=== PATIENT | male | born 1985 | race Caucasian/White ===

== ENCOUNTER 2021-05-14 15:27 | Emergency (ER) | payer SELFPAY ==
--- OUTSIDE RECORDS SUMMARY | 2021-05-14 15:35 | XMS REPORT | Continuity of Care Document ---
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 temperature 2021-03-11 22:50:53 36.78 Genesis [facility] [place] [facility] Respiratory rate 2021-03-11 22:50:53 18 /min [facility] Oxygen saturation in 2021-03-11 22:50:53 100 /min [facility] of Arterial blood by [facility] Pulse oximetry Branch Systolic blood 2021-02-11 11:34:18 114 mm[Hg] [facility] [place] [facility] Diastolic blood 2021-02-11 11:34:18 62 mm[Hg] [facility] Heart rate 2021-02-11 11:34:18 67 /min [facility] Body temperature 2021-02-11 11:34:18 37.11 Genesis [facility] [place] [facility] Respiratory rate 2021-02-11 11:34:18 16 /min [facility] [place] [facility] Oxygen saturation in 2021-02-11 11:34:18 97 /min [facility] of Arterial blood by [facility] Pulse oximetry Branch Body weight 2021-02-11 04:17:00 102.059 kg [facility] BMI 2021-02-11 04:17:00 31.38 kg/m2 [facility] Systolic blood 2020-09-04 21:12:00 110 mm[Hg] [facility] [place] [facility] Diastolic blood 2020-09-04 21:12:00 86 mm[Hg] [facility] [place] [facility] Heart rate 2020-09-04 21:12:00 82 /min [facility] Body temperature 2020-09-04 21:12:00 37.06 Genesis [facility] [place] [facility] Respiratory rate 2020-09-04 21:12:00 18 /min [facility] [place] [facility] Oxygen saturation in 2020-09-04 21:12:00 100 /min [facility] Arterial blood by [place] [place] Pulse oximetry Branch Body height 2020-09-04 02:38:00 180.3 cm [facility] [place] [facility] [place] Body weight 2020-09-04 02:38:00 102.059 kg [facility] [place] [facility] BMI 2020-09-04 02:38:00 31.38 kg/m2 [facility] Branch Systolic blood 2020-09-04 21:12:00 110 mm[Hg] [facility] [place] [facility] Diastolic blood 2020-09-04 21:12:00 86 mm[Hg] Unive rsity of pressure [facility] Heart rate 2020-09-04 21:12:00 82 /min [facility] [place] [facility] [place] Body temperature 2020-09-04 21:12:00 37.06 Genesis Univ ersity of [facility] Respiratory rate 2020-09-04 21:12:00 18 /min [facility] ersity of [facility] Oxygen saturation in 2020-09-04 21:12:00 100 /min [facility] Arterial blood by [facility] Pulse oximetry Branch Body height 2020-09-04 02:38:00 180.3 cm [facility] [place] [facility] [place] Body weight 2020-09-04 02:38:00 102.059 kg [facility] [place] [facility] [place] BMI 2020-09-04 02:38:00 31.38 kg/m2 Universi [facility] of [facility] Systolic blood 2021-02-12 21:00:00 127 mm[Hg] [facility] pressure Diastolic blood 2021-02-12 21:00:00 74 mm[Hg] [facility] pressure Heart rate 2021-02-12 21:00:00 93 /min [facility] Body temperature 2021-02-12 21:00:00 36.94 [facility] Respiratory rate 2021-02-12 21:00:00 18 /min [facility] Oxygen saturation in 2021-02-12 21:00:00 98 /min [facility] Arterial blood by Pulse oximetry Body height 2021-02-11 11:38:00 180.3 cm [facility] Body weight 2021-02-11 11:38:00 92.81 kg [facility] ealt BMI 2021-02-11 11:38:00 28.54 kg/m2 [facility] 02 Sat by Pulse 2020-09-26 09:01:22 100 /min Oximetry Body Mass Index 2020-09-26 09:01:22 30.0 Height 2020-09-26 09:01:22 180.34\\S\\71 Pulse Rate 2020-09-26 09:01:22 75 /min Respiratory Rate 2020-09-26 09:01:22 18 /min Temperature 2020-09-26 09:01:22 37\\S\\98.6 Weight 2020-09-26 09:01:22 62351.359\\S\\3440 Weight Measurement 2020-09-26 09:01:22 Estimated by Method Patient 02 Sat by Pulse 2020-09-22 08:55:59 100 /min Oximetry Body Mass Index 2020-09-22 08:55:59 30.0 Height 2020-09-22 08:55:59 180.34\\S\\71 Pulse Rate 2020-09-22 08:55:59 75 /min Respiratory Rate 2020-09-22 08:55:59 18 /min Temperature 2020-09-22 08:55:59 37\\S\\98.6 Weight 2020-09-22 08:55:59 37438.359\\S\\3440 Weight Measurement 2020-09-22 08:55:59 Estimated by Method Patient 02 Sat by Pulse 2020-09-20 17:45:44 100 /min Oximetry Body Mass Index 2020-09-20 17:45:44 30.7 Height 2020-09-20 17:45:44 180.34\\S\\71 Pulse Rate 2020-09-20 17:45:44 89 /min Respiratory Rate 2020-09-20 17:45:44 16 /min Temperature 2020-09-20 17:45:44 36.8\\S\\98.2 Weight 2020-09-20 17:45:44 35773.321\\S\\3520 Weight Measurement 2020-09-20 17:45:44 Estimated by Method Patient 02 Sat by Pulse 2020-09-20 17:28:42 100 /min Oximetry Body Mass Index 2020-09-20 17:28:42 30.7 Height 2020-09-20 17:28:42 180.34\\S\\71 Pulse Rate 2020-09-20 17:28:42 89 /min Respiratory Rate 2020-09-20 17:28:42 16 /min Temperature 2020-09-20 17:28:42 36.8\\S\\98.2 Weight 2020-09-20 17:28:42 08500.321\\S\\3520 Weight Measurement 2020-09-20 17:28:42 Estimated by Method Patient 02 Sat by Pulse 2020-09-20 17:18:24 100 /min Oximetry Body Mass Index 2020-09-20 17:18:24 30.7 Height 2020-09-20 17:18:24 180.34\\S\\71 Pulse Rate 2020-09-20 17:18:24 89 /min Respiratory Rate 2020-09-20 17:18:24 16 /min Temperature 2020-09-20 17:18:24 36.8\\S\\98.2 Weight 2020-09-20 17:18:24 70299.321\\S\\3520 Weight Measurement 2020-09-20 17:18:24 Estimated by Method Patient 02 Sat by Pulse 2020-09-20 16:07:13 100 /min Oximetry Body Mass Index 2020-09-20 16:07:13 30.7 Height 2020-09-20 16:07:13 180.34\\S\\71 Pulse Rate 2020-09-20 16:07:13 89 /min Respiratory Rate 2020-09-20 16:07:13 16 /min Temperature 2020-09-20 16:07:13 36.8\\S\\98.2 Weight 2020-09-20 16:07:13 55464.321\\S\\3520 Weight Measurement 2020-09-20 16:07:13 Estimated by Method Patient 02 Sat by Pulse 2020-09-20 16:06:42 100 /min Oximetry Body Mass Index 2020-09-20 16:06:42 30.7 Height 2020-09-20 16:06:42 180.34\\S\\71 Pulse Rate 2020-09-20 16:06:42 89 /min Respiratory Rate 2020-09-20 16:06:42 16 /min Temperature 2020-09-20 16:06:42 36.8\\S\\98.2 Weight 2020-09-20 16:06:42 58097.321\\S\\3520 Weight Measurement 2020-09-20 16:06:42 Estimated by Method Patient 02 Sat by Pulse 2020-09-20 15:36:51 100 /min Oximetry Body Mass Index 2020-09-20 15:36:51 30.7 Height 2020-09-20 15:36:51 180.34\\S\\71 Pulse Rate 2020-09-20 15:36:51 89 /min Respiratory Rate 2020-09-20 15:36:51 16 /min Temperature 2020-09-20 15:36:51 36.8\\S\\98.2 Weight 2020-09-20 15:36:51 23842.321\\S\\3520 Weight Measurement 2020-09-20 15:36:51 Estimated by Method Patient 02 Sat by Pulse 2020-09-20 15:34:48 100 /min Oximetry Body Mass Index 2020-09-20 15:34:48 30.0 Height 2020-09-20 15:34:48 180.34\\S\\71 Pulse Rate 2020-09-20 15:34:48 75 /min Respiratory Rate 2020-09-20 15:34:48 18 /min Temperature 2020-09-20 15:34:48 37\\S\\98.6 Weight 2020-09-20 15:34:48 67800.359\\S\\3440 Weight Measurement 2020-09-20 15:34:48 Estimated by Method Patient WEIGHT 2020-09-20 15:34:00 99.570157 kg HEIGHT 2020-09-20 15:34:00 180.34 cm 02 Sat by Pulse 2020-09-20 14:56:43 100 /min Oximetry Body Mass Index 2020-09-20 14:56:43 30.0 Height 2020-09-20 14:56:43 180.34\\S\\71 Pulse Rate 2020-09-20 14:56:43 75 /min Respiratory Rate 2020-09-20 14:56:43 18 /min Temperature 2020-09-20 14:56:43 37\\S\\98.6 Weight 2020-09-20 14:56:43 35896.359\\S\\3440 Weight Measurement 2020-09-20 14:56:43 Estimated by Method Patient 02 Sat by Pulse 2020-09-20 14:44:49 100 /min Oximetry Body Mass Index 2020-09-20 14:44:49 30.0 Height 2020-09-20 14:44:49 180.34\\S\\71 Pulse Rate 2020-09-20 14:44:49 89 /min Respiratory Rate 2020-09-20 14:44:49 16 /min Temperature 2020-09-20 14:44:49 36.8\\S\\98.2 Weight 2020-09-20 14:44:49 04464.359\\S\\3440 Weight Measurement 2020-09-20 14:44:49 Estimated by Method Patient 02 Sat by Pulse 2020-09-20 13:31:34 100 /min Oximetry Body Mass Index 2020-09-20 13:31:34 30.0 Height 2020-09-20 13:31:34 180.34\\S\\71 Pulse Rate 2020-09-20 13:31:34 89 /min Respiratory Rate 2020-09-20 13:31:34 16 /min Temperature 2020-09-20 13:31:34 36.8\\S\\98.2 Weight 2020-09-20 13:31:34 52514.359\\S\\3440 Weight Measurement 2020-09-20 13:31:34 Estimated by Method Patient 02 Sat by Pulse 2020-09-20 11:57:11 100 /min Oximetry Body Mass Index 2020-09-20 11:57:11 30.0 Height 2020-09-20 11:57:11 180.34\\S\\71 Pulse Rate 2020-09-20 11:57:11 89 /min Respiratory Rate 2020-09-20 11:57:11 16 /min Temperature 2020-09-20 11:57:11 36.8\\S\\98.2 Weight 2020-09-20 11:57:11 19435.359\\S\\3440 Weight Measurement 2020-09-20 11:57:11 Estimated by Method Patient 02 Sat by Pulse 2020-09-20 11:56:09 100 /min Oximetry Body Mass Index 2020-09-20 11:56:09 30.0 Height 2020-09-20 11:56:09 180.34\\S\\71 Pulse Rate 2020-09-20 11:56:09 89 /min Respiratory Rate 2020-09-20 11:56:09 16 /min Temperature 2020-09-20 11:56:09 36.8\\S\\98.2 Weight 2020-09-20 11:56:09 71887.359\\S\\3440 Weight Measurement 2020-09-20 11:56:09 Estimated by Method Patient WEIGHT 2020-09-20 11:53:00 97.426199 kg HEIGHT 2020-09-20 11:53:00 180.34 cm Procedures Procedure Date / Time Performing Clinician Source Performed URINALYSIS 2021-03-22 20:02:00 Gus Steward [facility] URINE DRUG (IMMUNOASSAY) 2021-03-22 20:02:00 Gus Steward [facility] SCREEN W/O REFLEX CREATINE KINASE 2021-03-22 18:27:00 Gus Steward [facility] COMP. METABOLIC PANEL 2021-03-22 18:27:00 Gus Steward [facility] ([id number]) [facility] SALICYLATE 2021-03-22 18:27:00 Gus Steward [facility] ETHANOL 2021-03-22 18:27:00 Gus Steward [facility] CBC WITH DIFF 2021-03-22 18:27:00 Gus Steward [facility] EXTRA TUBE ORANGE 2021-03-22 18:27:00 Gus Steward [facility] EKG-12 LEAD 2021-03-20 01:15:00 Mehrdad Pipestem James [facility] URINE DRUG (IMMUNOASSAY) 2021-03-20 00:25:00 Sonia Cronin [facility] SCREEN URINALYSIS 2021-03-20 00:25:00 Cronin [facility] EXTRA TUBE URINE CULTURE 2021-03-20 00:25:00 Nolberto Christianson [facility] XR CHEST 1 VW 2021-03-20 00:22:00 Mehrdad [facility] COVID-19 (MOLECULAR 2021-03-20 00:19:00 Mehrdad [facility] TESTING [facility] NUCLEIC ACID AMPLIFICATION) TROPONIN I 2021-03-20 00:18:00 Mehrdad [facility] HEPATIC FUNCTION PANEL 2021-03-20 00:18:00 Mehrdad Sonia [facility] ([id number]) (ALB,T.PRO,BILI Medical Branch T,BU/BC,ALT,AST,ALK PHOS) BASIC METABOLIC PANEL 2021-03-20 00:18:00 Mehrdad [facility] (NA, K, CL, CO2, Medical Branch GLUCOSE, BUN, CREATININE, CA) SALICYLATE 2021-03-20 00:18:00 Mehrdad [facility] ETHANOL 2021-03-20 00:18:00 Mehrdad [facility] CBC WITH DIFF 2021-03-20 00:18:00 Mehrdad [facility] COVID-19 (ID NOW RAPID 2021-03-20 00:18:00 Mehrdad Sonia [facility] TESTING) Medical Branch CREATINE KINASE 2021-03-10 13:11:00 Delia Noe [facility] CBC WITH DIFF 2021-03-10 02:51:[address] [facility] CREATINE KINASE 2021-03-10 02:48:00 Madison [facility] THYROID STIMULATING 2021-03-10 02:48:00 Roderick Wallace [facility] HORMONE [facility] COMP. METABOLIC PANEL 2021-03-10 02:48:00 Madison [facility] ([id number]) [facility] SALICYLATE 2021-03-10 02:48:00 Roderick [facility] ETHANOL 2021-03-10 02:48:[address] [facility] URINALYSIS 2021-03-10 02:48:00 [facility] COVID-19 (ID NOW RAPID 2021-03-10 02:48:00 Roderick Wallace [facility] TESTING) Medical Branch URINE DRUG (IMMUNOASSAY) 2021-03-10 02:48:00 Roderick Wallace [facility] - COMPREHENSIVE DRUG Medical Bra nch SCREEN W/O REFLEX CONSENT/REFUSAL FOR 2021-03-10 02:13:08 Doctor Unassigned, No Un [facility] DIAGNOSIS AND TREATMENT Name Medical Branch CONSULT CLINICAL CASE 2021-02-12 18:33:22 Keri Patton [facility] MANAGEMENT (RN/SW) CONSULT CLINICAL CASE 2021-02-12 15:38:52 Bryant Herrera [facility] MANAGEMENT (RN/SW) XRAY CHEST 2 VIEWS 2021-02-11 13:07:07 Peri Trejo [facility] BASIC METABOLIC PANEL 2021-02-11 11:14:00 Peri Trejo [facility] CBC/DIFF 2021-02-11 11:14:00 Peri Trejo [facility] TROPONIN I 2021-02-11 11:14:00 Peri Trejo [facility] URINE DRUG SCREEN 2021-02-11 11:14:00 Peri Trejo [facility] CBC 2021-02-11 11:14:00 Peri Trejo [facility] 12 LEAD EKG 2021-02-11 10:56:21 Peri Trejo [facility] COVID-19 (ID NOW RAPID 2020-09-04 07:46:00 Adiel Craig [facility] TESTING) Medical Branch COMP. METABOLIC PANEL 2020-09-04 04:56:00 Adiel Craig Un [facility] ([id number]) Medical Branch SALICYLATE 2020-09-04 04:56:00 Adiel Craig [facility] ETHANOL 2020-09-04 04:56:00 Adiel Craig [facility] CBC WITH DIFF 2020-09-04 04:56:00 Adiel Craig [facility] EXTRA TUBE URINE CULTURE 2020-09-04 04:56:00 Adiel Craig [facility] URINE DRUG (IMMUNOASSAY) 2020-09-04 04:44:00 Adiel Craig [facility] - COMPREHENSIVE DRUG Medical [facility] SCREEN CONSULT CLINICAL CASE 2020-04-04 10:51:10 Mine [facility] MANAGEMENT (RN/SW) TROPONIN I POC 2020-04-03 15:53:00 Unknown, Provider Maciej [facility] CBC/DIFF 2020-04-03 15:50:00 RodBarbara ng [facility] BASIC METABOLIC PANEL 2020-04-03 15:50:00 Barbara A[facility] CBC 2020-04-03 15:50:00 Barbara Ayoub [facility] SARS-COV-2, FLU A/B, RSV 2020-04-03 15:50:00 [facility] CORONAVIRUS, COVID-19, 2020-04-03 15:50:00 [facility] NEELIMA URINALYSIS 2020-04-03 15:49:00 Barbara Ayoub [facility] URINE DRUG SCREEN 2020-04-03 15:49:00 Barbara Ayoub [facility] URINALYSIS 2020-04-03 15:49:00 [facility] XRAY CHEST 2 VIEWS 2020-04-03 15:20:02 [facility] EKG PROC 12 LEAD 2020-04-03 14:14:41 Yaneli Hahn [facility] EKG; TRACING ONLY NON [facility] 2019-11-18 05:01:00 Doctor Unassigned, No Univ [facility] DOCUMENTATION Name Medical [facility] [place] Plan of Care Planned Activity Planned Date Details Comments Source Future Scheduled Test 2021-02-11 IMM Influenza Seasonal [facility] 00:00:00 Feb to July (>/= 19 yrs) [code = IMM Influenza Seasonal Feb to July (>/= 19 yrs)] Future Scheduled Test 1999 COVID-19 Vaccine (1) [facility] 00:00:00 [code = COVID-19 Vaccine (1)] Future Scheduled Test 1993 Imm Pneumococcal 0-64 [facility] 00:00:00 (1 of 2 - PPSV23) [code = Imm Pneumococcal 0-64 (1 of 2 - PPSV23)] Encounters Start End Encounter Admission Attending Care Care Encounter Source Date/Time Date/Time Type Type Clinicians Facility Department ID 2021-03-25 Outpatient [facility] [id number] [facility] 10:48:06 GINA 2021-03-15 Emergency [facility] [id number] Univers 02:54:48 ity [facility] 2021-03-13 Emergency [facility] [id number] Univers 15:01:13 ity [facility] 2021-02-24 Inpatient HCAMN MORIAH [facility] 00:13:00 [id number] [facility] 2020-08-29 Inpatient HCACL LESLIE [facility] 18:38:00 [id number] [facility] 2020-07-19 Inpatient HCAMN MEXP [facility] 01:36:00 [id number] [facility] 2019-11-10 Inpatient HCACL LESLIE [facility] 18:58:00 [id number] [facility] 2021-03-31 2021-04-18 Inpatient RIGO-ELDE [facility] [id number] Kennan 13:29:00 08:00:00 VAIBHAV Rahman 2021-03-25 2021-03-31 Inpatient [facility] [id number] Kennan 10:47:00 12:01:00 [facility] 2021-03-22 2021-03-25 [facility] [id number] Univers 10:54:00 08:56:00 JUDY ity of [facility] 2021-03-22 2021-03-25 Emergency BinGus coleman E TRAUMA 1.2.840 .[id number] Univers 10:54:00 08:56:00 Isabell Burrell [id number] ity Meron Tinoco 4.2.7.2. 686 Moisés Mathew [id number] [facility] Judy Harvey [address] [place] [address] 2021-03-19 2021-03-20 Emergency X SILVESTRE [facility] ERT [id number] Univers 18:57:00 14:29:00 PITA [facility] 2021-03-19 2021-03-20 Emergency Sonia Cronin [facility] [id number] Univers 18:57:00 14:29:00 Pita Rivers [facility] [id number] it[id number] [phone] [address] ([facility]) 2021-03-19 2021-03-19 [facility] [id number] Univers 18:30:00 19:17:47 KIERSTEN [facility] 2021-03-19 2021-03-19 Nurse Nurse, Jose A SLAUGHTER 1.2.840. [id number] Univers 18:18:02 18:33:02 Visit Unknown, Attending PEDIATRIC [id number]. 10 [id number] [id number] [place] [address] [facility] 2021-03-19 2021-03-19 Outpatient R [facility] [id number] Univers 18:30:00 18:30:00 [id number] ity of [facility] 2021-03-09 2021-03-11 Emergency X ADRIENNE [facility] ERT [id number] Univers 21:24:00 18:00:00 [facility] 2021-03-09 2021-03-11 Emergency Roderick Wallace [facility] [id number] Univers 21:24:00 18:00:00 James Verde [facility] [id number] ity of [place] [id number] [facility] [id number] Angelica Deleon [address] ([facility]) 2021-02-24 2021-02-24 Emergency CAMMY MartinezODELL MORIAH [id number] [facility] 00:13:00 01:32:[address] [place] [address] 2021-02-11 2021-02-12 Emergency [facility] [id number] Kennan 12:01:00 21:00:00 [facility] 2021-02-11 2021-02-11 Emergency ALEXANDER, [facility] [id number] Wing 12:55:01 12:55:01 PERI morris 2021-02-10 2021-02-11 Emergency Lenard [facility] [id number] [facility] 23:18:00 08:48:00 [facility] [id number] it y [id number] [facility] [id number] [address] ([facility]) 2020-11-08 2020-11-08 Emergency JORGE TorresMN MORIAH [id number] [facility] 08:32:00 11:03:00 Jose [id number] [facility] 2020-09-03 2020-09-04 [facility] 1.2. [id number] [facility] 22:18:00 16:26:00 [facility] [id number] [id number] [id number] [address] ([facility]) 2020-09-03 2020-09-04 Emergency [facility] 1.2. 840.114 [id number] 22:18:00 16:26:00 Jimenez, [facility] [id number] [place] [id number] [place] [phone] [place] [address] ([facility]) 2020-05-04 2020-05-04 Telephonic Carlos Bey [facility] [id number] Maciej 07:32:32 11:21:34 Encounter MeirPaulino Lisset [facility] 2020-04-16 2020-04-16 Telephonic Meir [facility] [id number] Maciej 07:15:06 12:12:14 Encounter [facility]ino [facility] 2020-04-03 2020-04-04 Emergency Lupillo [facility] [id number] Maciej 14:15:43 12:06:00 [facility] 2019-12-05 2019-12-23 Inpatient 1 Fernando Gunter [facility] PSY [id number] St. 12:29:00 13:53:00 Fernando Gunter andie [facility] 2019-11-18 2019-11-18 Hospital [facility], ST. 1.2.840.114 [id number] [facility] 13:58:34 23:59:00 Encounter Pita Flores TERESACharlotteAndie [id number] ity of [facility] [id number] [facility] [place] [id number] [facility] 060 [place] 2019-11-18 2019-11-18 [facility] Stone, ST. 1.2.840.114 [id number] 13:58:34 23:59:00 Encounter Pita Sandra TERESACharlotteAndie [id number] MEDICAL [id number] [place] [id number] [facility] 2019-11-18 2019-11-18 Out[facility] [id number] Univers 00:00:00 00:00:00 PITA gamez [facility] 2019-11-18 2019-11-18 Orders Doctor LÓPEZ [id number] [facility] 00:00:00 00:00:00 Only Unassigned, SHARA [id number] ity of [place] [facility] [id number] [facility] [id number] [facility] 009 [place] 2019-11-18 2019-11-18 Orders Doctor RENE Shen.[id number] 00:00:00 00:00:00 Only Unassigned, SHARA [id number] [place] [facility] [id number] [id number] Results Test Description Test Time Test Comments Results Result Comments Source Ethanol (ETOH) Level 2021-03-22 19:18:32 Test Item Value Reference Range Interpretation Comme nts ALCOHOL (test code = 4435460444) <10 mg/dL STEVE (test code = STEVE) Toxic Greater than or equal to 80 mg/dL. NOTE: Whole blood values are approximately 10% to 15% lower than serum and plasma. [facility] 19:18:27 Test Item Value Reference Range Interpretation Comments SALICYLATE (test code <10 mg/L = 2355184946) STEVE (test code = STEVE) Therapeutic Range: ? Analgesic and Antipyretic Use ? 20-100 mg/L ? ? Anti-Inflammatory Use ? 100-250 mg/L Toxic Range: ? Greater than 300 mg/L [facility]2021-11-09 19:18:12 Test Item Value Reference Range Interpretation Comments ACETAMINOP (test code = <10.0 10.0-30.0 L [id number]) STEVE (test code = STEVE) Toxic: Greater than 200 ug/mL @ 4 hour post ingestion or greater than 50 ug/mL @ 12 hour post ingestion Lab Interpretation (test Abnormal code = 34531-9) [facility] ([id number]) 2021-03-22 19:15:27 Test Item Value Reference Range Interpretation Comments NA (test code = 138 mmol/L 135-145 8273304535) K (test code = 5.1 mmol/L 3.5-5.0 H Slight 8483412137) hemolysis CL (test code = 108 mmol/L 98-108 1524929984) CO2 TOTAL (test code 22 mmol/L 23-31 L = 1390037000) AGAP (test code = 2-16 8707964243) BUN (test code = 8 mg/dL 7-23 Slight 3828204077) hemolysis GLUCOSE (test code = 86 mg/dL 70-110 0376235541) CREATININE (test code 0.54 mg/dL 0.60-1.25 L = 2572493462) TOTAL BILI (test code 0.7 mg/dL 0.1-1.1 = 3277729101) CALCIUM (test code = 8.9 mg/dL 8.6-10.6 1232642225) T PROTEIN (test code 6.9 g/dL 6.3-8.2 = 4985869996) ALBUMIN (test code = 3.8 g/dL 3.5-5.0 4453536130) ALK PHOS (test code = 70 U/L 34-122 Slight 1020803841) hemolysis ALTv (test code = 16 U/L 5-50 1742-6) AST(SGOT) (test code 28 U/L 13-40 Slight = 9150491582) hemolysis eGFR (test code = mL/min/1.73m2 9565843436) STEVE (test code = STEVE) Association of Glomerular Filtration Rate (GFR) and Staging of Kidney Disease* + -----+ --------+ +| GFR (mL/min/1.73 m2) ?| With Kidney Damage ?| ?Without Kidney Damage+ +------- +---- --+| ?>90 ?| ?Stage one ?| ? Normal ?+ ------+ ---------+--------- +| ?60-89 ?| ?Stage two ?| ? Decreased GFR ? + -----+ --------+ +| ?30-59 ?| ?Stage three ?| ? Stage three ? + -----+ --------+ +| ?15-29 ?| ?Stage four ? | ? Stage four ?+ ------+ ---------+--------- +| ?<15 (or dialysis) ? ?| ?Stage five ? | ? Stage five ?+ ------+ ---------+--------- + *Each stage assumes the associated GFR level has been in effect for at least three months. ?Stages 1 to 5, with or without kidney disease, indicate chronic kidney disease. Notes: Determination of stages one and two (with eGFR >59mL/min/1.73 m2) requires estimation of kidney damage for at least three months as defined by structural or functional abnormalities of the kidney, manifested by either:Pathological abnormalities or Markers of kidney damage (including abnormalities in the composition of the blood or urine or abnormalities in imaging tests). Lab Interpretation Abnormal (test code = 36458-9) [facility] [id number] 19:15:27 Test Item Value Reference Range Interpretation Comments CK (test code = 6246973376) 72 U/L 33-194 Lab Interpretation (test code = Normal 70231-4) [facility] with [id number] 18:40:24 Test Item Value Reference Range Interpretation Comments WBC (test code = See_Comment [Automated 6247-2) message] The sy stem which generated this result transmitted reference range : 4.20 - 10.70 10*3/?L. The reference range was not used to interpret this result as normal/abnormal . RBC (test code = See_Comment [Automated 789-8) message] The sy stem which generated this result transmitted reference range : 4.26 - 5.52 10*6/?L. The reference range was not used to interpret this result as normal/abnormal . HGB (test code = 13.0 g/dL 12.2-16.4 718-7) HCT (test code = 38.3 % 38.4-49.3 L 4544-3) MCV (test code = 86.7 fL 81.7-95.6 787-2) MCH (test code = 29.4 pg 26.1-32.7 785-6) MCHC (test code = 33.9 g/dL 31.2-35.0 786-4) RDW-SD (test code = 40.2 fL 38.5-51.6 20139-1) RDW-CV (test code = 12.7 % 12.1-15.4 788-0) PLT (test code = See_Comment [Automated 777-3) message] The sy stem which generated this result transmitted reference range : 150 - 328 10*3/ ?L. The reference r chaka was not used to interpret this result as normal/abnormal . MPV (test code = 9.1 fL 9.8-13.0 L 82136-6) NRBC/100 WBC (test See_Comment [Automat ed code = 8844814917) message] The system which generated this result transmitted reference range : 0.0 - 10.0 /100 WBCs. The refer ence range was not u sed to interpret th is result as normal/abnormal . NRBC x10^3 (test code <0.01 See_Comment [Auto mated = 7423745138) message] The s ystem which generated this result transmitted reference range : 10*3/?L. The reference range was not used to interpret this result as normal/abnormal . GRAN MAT (NEUT) % 52.4 % (test code = 770-8) IMM GRAN % (test code 0.20 % = 0669244142) LYMPH % (test code = 38.2 % 736-9) MONO % (test code = 6.3 % 5905-5) EOS % (test code = 2.2 % 713-8) BASO % (test code = 0.7 % 706-2) GRAN MAT x10^3(ANC) 4.62 10*3/uL 1.99-6.95 (test code = 1202101540) IMM GRAN x10^3 (test <0.03 0.00-0.06 code = 6854110907) LYMPH x10^3 (test code 3.37 10*3/uL 1.09-3.23 H = 731-0) MONO x10^3 (test code 0.56 10*3/uL 0.36-1.02 = 742-7) EOS x10^3 (test code = 0.19 10*3/uL 0.06-0.53 711-2) BASO x10^3 (test code 0.06 10*3/uL 0.01-0.09 = 704-7) Lab Interpretation Abnormal (test code = 95598-0) [facility] ClinicTROP[facility]IN [id number] 00:56:28 Test Item Value Reference Interpretation Comments Range TROPONIN I (test 0.001 ng/mL See_Comment [Automated code = 5226953628) message] The system which generated this result transmitted reference range : <=0.034. The reference range was not used to interpret this result as normal/abnormal . STEVE (test code = Reference (Normal) STEVE) Range (defined by the 99th percentile reference limit): <= 0.034 ng/mL Note: Cardiac troponin begins to rise 3-4 hours after the onset of ischemia. Repeat in 4-6 hours if the sample was drawn within 3-4 hours of the onset of the symptom and found normal. Diagnosis of myocardial injury is made with acute changes in cTn concentrations with at least one serial sample above the 99th percentile upper reference limit (URL), taken together with the patient's clinical presentation. Biotin has been reported to cause a negative bias, interpret results relative to patient's use of biotin. Lab Interpretation Normal (test code = 65312-2) [facility] WITH [id number] 00:50:32 Test Item Value Reference Range Interpretation Comments WBC (test code = See_Comment H [Automated 6690-2) message] The sy stem which generated this result transmitted reference range : 4.20 - 10.70 10*3/?L. The reference range was not used to interpret this result as normal/abnormal . RBC (test code = See_Comment [Automated 789-8) message] The sy stem which generated this result transmitted reference range : 4.26 - 5.52 10*6/?L. The reference range was not used to interpret this result as normal/abnormal . HGB (test code = 13.4 g/dL 12.2-16.4 718-7) HCT (test code = 38.3 % 38.4-49.3 L 4544-3) MCV (test code = 85.1 fL 81.7-95.6 787-2) MCH (test code = 29.8 pg 26.1-32.7 785-6) MCHC (test code = 35.0 g/dL 31.2-35.0 786-4) RDW-SD (test code = 38.1 fL 38.5-51.6 L 49721-1) RDW-CV (test code = 12.4 % 12.1-15.4 788-0) PLT (test code = See_Comment [Automated 777-3) message] The sy stem which generated this result transmitted reference range : 150 - 328 10*3/ ?L. The reference r chaka was not used to interpret this result as normal/abnormal . MPV (test code = 8.7 fL 9.8-13.0 L 41440-4) NRBC/100 WBC (test See_Comment [Automat ed code = 3132765173) message] The system which generated this result transmitted reference range : 0.0 - 10.0 /100 WBCs. The refer ence range was not u sed to interpret th is result as normal/abnormal . NRBC x10^3 (test code <0.01 See_Comment [Auto mated = 0860218259) message] The s ystem which generated this result transmitted reference range : 10*3/?L. The reference range was not used to interpret this result as normal/abnormal . GRAN MAT (NEUT) % 55.4 % (test code = 770-8) IMM GRAN % (test code 0.30 % = 5170343095) LYMPH % (test code = 34.2 % 736-9) MONO % (test code = 8.7 % 5905-5) EOS % (test code = 0.9 % 713-8) BASO % (test code = 0.5 % 706-2) GRAN MAT x10^3(ANC) 6.49 10*3/uL 1.99-6.95 (test code = 1526764758) IMM GRAN x10^3 (test 0.03 10*3/uL 0.00-0.06 code = 3374075452) LYMPH x10^3 (test code 4.01 10*3/uL 1.09-3.23 H = 731-0) MONO x10^3 (test code 1.02 10*3/uL 0.36-1.02 = 742-7) EOS x10^3 (test code = 0.10 10*3/uL 0.06-0.53 711-2) BASO x10^3 (test code 0.06 10*3/uL 0.01-0.09 = 704-7) Lab Interpretation Abnormal (test code = 31997-1) [facility] ClinicETHANOL2021-[facility] 00:45:31 Test Item Value Reference Range Interpretation Comments ALCOHOL (test code = <10 mg/dL 1291075868) STEVE (test code = Toxic Greater than or STEVE) equal to 80 mg/dL. NOTE: Whole blood values are approximately 10% to 15% lower than serum and plasma. [facility] ClinicSALICYLATE2021-11-07 00:45:26 Test Item Value Reference Range Interpretation Comments SALICYLATE (test code <10 mg/L = 2598258805) STEVE (test code = STEVE) Therapeutic Range: ? Analgesic and Antipyretic Use ? 20-100 mg/L ? ? Anti-Inflammatory Use ? 100-250 mg/L Toxic Range: ? Greater than 300 mg/L [facility] ClinicACETAMINOPHEN2021-11-07 00:45:16 Test Item Value Reference Range Interpretation Comments ACETAMINOP (test code = <10.0 10.0-30.0 L 0443504047) STEVE (test code = STEVE) Toxic: Greater than 200 ug/mL @ 4 hour post ingestion or greater than 50 ug/mL @ 12 hour post ingestion Lab Interpretation (test Abnormal code = 68938-4) [facility] METABOLIC PANEL (NA, K, CL, CO2, GLUCOSE, BUN, CREATININE, CA)2021-03-20 00:44:11 Test Item Value Reference Range Interpretation Comments NA (test code = 134 mmol/L 135-145 L 3157678339) K (test code = 3.7 mmol/L 3.5-5.0 9229629280) CL (test code = 98 mmol/L 98-108 9990837442) CO2 TOTAL (test code = 29 mmol/L 23-31 9337343001) AGAP (test code = 2-16 4397106374) BUN (test code = 13 mg/dL 7-23 1603964210) GLUCOSE (test code = 113 mg/dL 70-110 H 4594833528) CREATININE (test code = 0.71 mg/dL 0.60-1.25 7369180195) CALCIUM (test code = 9.9 mg/dL 8.6-10.6 0181418423) eGFR (test code = mL/min/1.73m2 1163435960) STEVE (test code = STEVE) Association of Glomerular Filtration Rate (GFR) and Staging of Kidney Disease* + --+ --+ ------+| GFR (mL/min/1.73 m2) ?| With Kidney Damage ?| ?Without Kidney Damage+ --------+ --------+ +| ?>90 ?| ?Stage one ?| ? Normal ?+ ---+ ---+ -------+| ?60-89 ?| ?Stage two ?| ? Decreased GFR ? + --+ --+ ------+| ?30-59 ?| ?Stage three ?| ? Stage three ? + --+ --+ ------+| ?15-29 ?| ?Stage four ? | ? Stage four ?+ ---+ ---+ -------+| ?<15 (or dialysis) ? ?| ?Stage five ? | ? Stage five ?+ ---+ ---+ -------+ *Each stage assumes the associated GFR level has been in effect for at least three months. ?Stages 1 to 5, with or without kidney disease, indicate chronic kidney disease. Notes: Determination of stages one and two (with eGFR >59mL/min/1.73 m2) requires estimation of kidney damage for at least three months as defined by structural or functional abnormalities of the kidney, manifested by either:Pathological abnormalities or Markers of kidney damage (including abnormalities in the composition of the blood or urine or abnormalities in imaging tests). Lab Interpretation Abnormal (test code = 34126-9) [facility] ClinicHEPATIC FUNCTION PANEL (23043) (ALB,T.PRO,BILI T,BU/BC,ALT,AST,ALK PHOS)2021-03-20 00:44:11 Test Item Value Reference Range Interpretation Comments TOTAL BILI (test code = 7005548132) 0.6 mg/dL 0.1-1.1 BILI UNCON (test code = 4038941675) 0.3 mg/dL 0.1-1.1 BILI CONJ (test code = 8124227581) 0.0 mg/dL 0.0-0.3 T PROTEIN (test code = 1862683721) 7.4 g/dL 6.3-8.2 ALBUMIN (test code = 6035567349) 4.2 g/dL 3.5-5.0 ALK PHOS (test code = 3309164955) 84 U/L 34-122 ALTv (test code = 1742-6) 19 U/L 5-50 AST(SGOT) (test code = 5751814944) 30 U/L 13-40 Lab Interpretation (test code = Normal 61818-4) [facility] ClinicCREATINE [id number] 13:31:13 Test Item Value Reference Range Interpretation Comments CK (test code = 8101844973) 291 U/L 33-194 H Lab Interpretation (test code = Abnormal 08271-2) [facility] ClinicThyroid Stimulating [id number] 03:40:00 Test Item Value Reference Range Interpretation Comments TSH (test code = See_Comment L [Automated message] 3196905725) The system theeventwall generated this result transmitted ref erence range: 0.45 - 4 .70 mIU/L. The refe rence range was not u sed to interpret this result as normal/abnor mal. Lab Interpretation (test Abnormal code = 99460-5) [facility] ClinicEthanol (ETOH) [id number] 03:12:40 Test Item Value Reference Range Interpretation Comments ALCOHOL (test code = <10 mg/dL 2031856174) STEVE (test code = Toxic Greater than or STEVE) equal to 80 mg/dL. NOTE: Whole blood values are approximately 10% to 15% lower than serum and plasma. [facility] ClinicSalicylate2021-10-28 03:12:35 Test Item Value Reference Range Interpretation Comments SALICYLATE (test code <10 mg/L = 1600849667) STEVE (test code = STEVE) Therapeutic Range: ? Analgesic and Antipyretic Use ? 20-100 mg/L ? ? Anti-Inflammatory Use ? 100-250 mg/L Toxic Range: ? Greater than 300 mg/L [facility] ClinicAcetaminophen2021-10-28 03:12:30 Test Item Value Reference Range Interpretation Comments ACETAMINOP (test code = <10.0 10.0-30.0 L 8378671767) STEVE (test code = STEVE) Toxic: Greater than 200 ug/mL @ 4 hour post ingestion or greater than 50 ug/mL @ 12 hour post ingestion Lab Interpretation (test Abnormal code = 55438-2) [facility] ClinicComprehensive Metabolic Panel (92066) 2021-03-10 03:09:55 Test Item Value Reference Range Interpretation Comments NA (test code = 137 mmol/L 135-145 3610794637) K (test code = 3.4 mmol/L 3.5-5.0 L 7336148706) CL (test code = 101 mmol/L 98-108 9479292159) CO2 TOTAL (test code = 27 mmol/L 23-31 4591188767) AGAP (test code = 2-16 9993678164) BUN (test code = 10 mg/dL 7-23 5559588671) GLUCOSE (test code = 78 mg/dL 70-110 9606998347) CREATININE (test code = 0.66 mg/dL 0.60-1.25 1241088002) TOTAL BILI (test code = 0.7 mg/dL 0.1-1.1 9544180828) CALCIUM (test code = 9.0 mg/dL 8.6-10.6 0560451153) T PROTEIN (test code = 7.2 g/dL 6.3-8.2 6113732063) ALBUMIN (test code = 4.0 g/dL 3.5-5.0 7072148969) ALK PHOS (test code = 71 U/L 34-122 7183186591) ALTv (test code = 18 U/L 5-50 2-6) AST(SGOT) (test code = 32 U/L 13-40 6588241997) eGFR (test code = mL/min/1.73m2 6688459776) STEVE (test code = STEVE) Association of Glomerular Filtration Rate (GFR) and Staging of Kidney Disease* + --+ --+ ------+| GFR (mL/min/1.73 m2) ?| With Kidney Damage ?| ?Without Kidney Damage+ --------+ --------+ +| ?>90 ?| ?Stage one ?| ? Normal ?+ ---+ ---+ -------+| ?60-89 ?| ?Stage two ?| ? Decreased GFR ? + --+ --+ ------+| ?30-59 ?| ?Stage three ?| ? Stage three ? + --+ --+ ------+| ?15-29 ?| ?Stage four ? | ? Stage four ?+ ---+ ---+ -------+| ?<15 (or dialysis) ? ?| ?Stage five ? | ? Stage five ?+ ---+ ---+ -------+ *Each stage assumes the associated GFR level has been in effect for at least three months. ?Stages 1 to 5, with or without kidney disease, indicate chronic kidney disease. Notes: Determination of stages one and two (with eGFR >59mL/min/1.73 m2) requires estimation of kidney damage for at least three months as defined by structural or functional abnormalities of the kidney, manifested by either:Pathological abnormalities or Markers of kidney damage (including abnormalities in the composition of the blood or urine or abnormalities in imaging tests). Lab Interpretation Abnormal (test code = 22492-1) [facility] ClinicCreatine [id number] 03:09:55 Test Item Value Reference Range Interpretation Comments CK (test code = 6589620025) 540 U/L 33-194 H Lab Interpretation (test code = Abnormal 05218-5) [facility] ClinicCBC with [id number] 02:58:52 Test Item Value Reference Range Interpretation Comments WBC (test code = See_Comment [Automated 6690-2) message] The sy stem which generated this result transmitted reference range : 4.20 - 10.70 10*3/?L. The reference range was not used to interpret this result as normal/abnormal . RBC (test code = See_Comment [Automated 789-8) message] The sy stem which generated this result transmitted reference range : 4.26 - 5.52 10*6/?L. The reference range was not used to interpret this result as normal/abnormal . HGB (test code = 13.0 g/dL 12.2-16.4 718-7) HCT (test code = 38.7 % 38.4-49.3 4544-3) MCV (test code = 85.6 fL 81.7-95.6 787-2) MCH (test code = 28.8 pg 26.1-32.7 785-6) MCHC (test code = 33.6 g/dL 31.2-35.0 786-4) RDW-SD (test code = 39.1 fL 38.5-51.6 12801-0) RDW-CV (test code = 12.5 % 12.1-15.4 788-0) PLT (test code = See_Comment [Automated 777-3) message] The sy stem which generated this result transmitted reference range : 150 - 328 10*3/ ?L. The reference r chaka was not used to interpret this result as normal/abnormal . MPV (test code = 8.8 fL 9.8-13.0 L 48293-4) NRBC/100 WBC (test See_Comment [Automat ed code = 4786826465) message] The system which generated this result transmitted reference range : 0.0 - 10.0 /100 WBCs. The refer ence range was not u sed to interpret th is result as normal/abnormal . NRBC x10^3 (test code <0.01 See_Comment [Auto mated = 7121687004) message] The s ystem which generated this result transmitted reference range : 10*3/?L. The reference range was not used to interpret this result as normal/abnormal . GRAN MAT (NEUT) % 45.6 % (test code = 770-8) IMM GRAN % (test code 0.20 % = 1013329607) LYMPH % (test code = 44.3 % 736-9) MONO % (test code = 7.5 % 5905-5) EOS % (test code = 1.6 % 713-8) BASO % (test code = 0.8 % 706-2) GRAN MAT x10^3(ANC) 4.01 10*3/uL 1.99-6.95 (test code = 3516056166) IMM GRAN x10^3 (test <0.03 0.00-0.06 code = 9419908779) LYMPH x10^3 (test code 3.90 10*3/uL 1.09-3.23 H = 731-0) MONO x10^3 (test code 0.66 10*3/uL 0.36-1.02 = 742-7) EOS x10^3 (test code = 0.14 10*3/uL 0.06-0.53 711-2) BASO x10^3 (test code 0.07 10*3/uL 0.01-0.09 = 704-7) Lab Interpretation Abnormal (test code = 38070-1) [facility]12 LEAD [id number] 10:56:2112 LEAD EKG FOR [facility] Test Date: 6149-44-21Aka Name: BRUCE ALARCON Department: 5520Patient ID: [id number] Room: Gender: [employer] Operator: : 1985 Requested By: PERI TREJO AOrder Number: [id number] Reading MD: mayra HernandezeasurementsIntervals [place] Rate: 54 P: 156PR: 121 QRS: 101QRSD: 105 T: 123QT: 405 QTc: 390 Interpretive StatementsSINUS BRADYCARDIAARM LEADS REVERSED [INVERTED P AND QRS IN I]Precordial lead misplacementPlease confirm lead placementElectronically Signed On 02-11-2021 16:20:29 CDT by mayra Green [facility] METABOLIC [id number] 11:06:00 Test Item Value Reference Range Interpretation Comments SODIUM (test code = NA) 143 mmol/l 134.0-147.0 N POTASSIUM (test code = K) 4.2 mmol/L 3.6-5.2 N CHLORIDE (test code = CL) 106 mmol/l 98.0-107.0 N CARBON DIOXIDE (test code = CO2) 30.4 mmol/l 21.0-33.0 N ANION GAP (test code = GAP) 10.8 0-20 N GLUCOSE (test code = GLU) 81 mg/dl 70.0-110.0 N BLOOD UREA NITROGEN (test code = 9 mg/dl 7.0-18.0 N BUN) CREATININE (test code = CREAT) 0.75 mg/dL 0.60-1.30 N GFR NON BLACK (test code = 127 mL/min 105-110 H GFRNONBLACK) GFR BLACK (test code = GFRBLACK) 154 mL/min 127-133 H CALCIUM (test code = CA) 8.2 mg/dl 8.0-10.5 N B-TYPE NATRIURETIC [id number] 11:06:00 Test Item Value Reference Range Interpretation Comments B-TYPE NATRIURETIC PEPTIDE (test 30.7 PG/ML 5-100 N code = BNP) [id number] 11:06:00 Test Item Value Reference Range Interpretation Comments TROPONIN-I (test <0.02 NG/ML 0.00-0.06 N REFERENCE R CHAKA code = TROPI) TROPONIN I HEA LTHY INDIVIDUALS: < 0.06 ng/mL R/O ISCHE SURI: 0.07 - 0.60 ng/ mL CUT-OFF RANGE F OR AMI: 0.60 - 1.5 ng/m L BASIC METABOLIC [id number] 10:44:00 Test Item Value Reference Range Interpretation Comments SODIUM (test code = NA) 143 mmol/l 134.0-147.0 N POTASSIUM (test code = K) 4.2 mmol/L 3.6-5.2 N CHLORIDE (test code = CL) 106 mmol/l 98.0-107.0 N CARBON DIOXIDE (test code = CO2) 30.4 mmol/l 21.0-33.0 N ANION GAP (test code = GAP) 10.8 0-20 N GLUCOSE (test code = GLU) 81 mg/dl 70.0-110.0 N BLOOD UREA NITROGEN (test code = 9 mg/dl 7.0-18.0 N BUN) CREATININE (test code = CREAT) 0.75 mg/dL 0.60-1.30 N GFR NON BLACK (test code = 127 mL/min 105-110 H GFRNONBLACK) GFR BLACK (test code = GFRBLACK) 154 mL/min 127-133 H CALCIUM (test code = CA) 8.2 mg/dl 8.0-10.5 N B-TYPE NATRIURETIC [id number] 10:44:00 Test Item Value Reference Range Interpretation Comments B-TYPE NATRIURETIC PEPTIDE (test code PG/ML 5-100 = BNP) [id number] 10:44:00 Test Item Value Reference Range Interpretation Comments TROPONIN-I (test <0.02 NG/ML 0.00-0.06 N REFERENCE R CHAKA code = TROPI) TROPONIN I HEA LTHY INDIVIDUALS: < 0.06 ng/mL R/O ISCHE SURI: 0.07 - 0.60 ng/ mL CUT-OFF RANGE F OR AMI: 0.60 - 1.5 ng/m L BASIC METABOLIC [id number] 10:38:00 Test Item Value Reference Range Interpretation Comments SODIUM (test code = NA) 143 mmol/l 134.0-147.0 N POTASSIUM (test code = K) 4.2 mmol/L 3.6-5.2 N CHLORIDE (test code = CL) 106 mmol/l 98.0-107.0 N CARBON DIOXIDE (test code = CO2) 30.4 mmol/l 21.0-33.0 N ANION GAP (test code = GAP) 10.8 0-20 N GLUCOSE (test code = GLU) mg/dl 70.0-110.0 BLOOD UREA NITROGEN (test code = mg/dl 7.0-18.0 BUN) CREATININE (test code = CREAT) mg/dL 0.60-1.30 GFR NON BLACK (test code = mL/min 105-110 GFRNONBLACK) GFR BLACK (test code = GFRBLACK) mL/min 127-133 CALCIUM (test code = CA) mg/dl 8.0-10.5 B-TYPE NATRIURETIC [id number] 10:38:00 Test Item Value Reference Range Interpretation Comments B-TYPE NATRIURETIC PEPTIDE (test code PG/ML 5-100 = BNP) [id number] 10:38:00 Test Item Value Reference Range Interpretation Comments TROPONIN-I (test code = TROPI) NG/ML 0.00-0.06 DRUGS OF ABUSE SCREEN [id number] 10:38:00 Test Item Value Reference Range Interpretation Comments URN COCAINE (test code NEGATIVE NEGATIVE Cocai ne cut-off = COCAURN) concentration: 300 ng/mL URN CANNABINOIDS (test NEGATIVE NEGATIVE Canna binoids cut-off code = CANNABURN) concentrat ion: 50 ng/mL URN AMPHETAMINE (test NEGATIVE NEGATIVE Amphet amine cut-off code = AMPHETURN) concentrat ion: 1000 ng/mL URN BARBITURATE (test NEGATIVE NEGATIVE Barbit urate cut-off code = BARBITURN) concentrat ion: 200 ng/mL URN BENZODIAZEPINE NEGATIVE NEGATIVE Benzodiaz epine cut-off (test code = BENZOURN) madalyn ntration: 200 ng/mL URN OPIATES (test code NEGATIVE NEGATIVE Opiat es cut-off = OPIATURN) concentration: 2000 ng/mL URN PHENCYCLIDINE (PCP) NEGATIVE NEGATIVE Phen cyclidine(PCP) (test code = PHENCURN) cut-o ff concentration: 25 ng/ml URN METHADONE (test NEGATIVE NEGATIVE Methadon e cut-off code = METHAURN) concentrati on: 300 ng/mL URINALYSIS [id number] 10:35:00 Test Item Value Reference Range Interpretation Comments UA COLOR (test code = COLU) YELLOW UA APPEARANCE (test code = CLEAR APPU) UA GLUCOSE DIPSTICK (test NORMAL mg/dl NORMAL code = DGLUU) UA BILIRUBIN DIPSTICK (test NEGATIVE mg/dL NEGATIVE code = BILU) UA KETONE DIPSTICK (test NEGATIVE mg/dl NEGATIVE code = KETU) UA SPECIFIC GRAVITY (test 1.010 1.000-1.030 code = SGU) UA BLOOD DIPSTICK (test NEGATIVE Alf/micL NEGATIVE code = HUEY) UA PH DIPSTICK (test code = 7.0 5.0-9.0 BG) UA PROTEIN DIPSTICK (test NEGATIVE mg/dl NEGATIVE code = PROU) UA UROBILINIOGEN DIPSTICK NORMAL mg/dl NORMAL (test code = URO) UA NITRITE DIPSTICK (test NEGATIVE NEGATIVE code = MICK) UA LEUKOCYTE ESTERASE NEGATIVE Sawyer/micL NEGATIVE DIPSTICK (test code = LEUU) UA WBC (test code = WBCU) 0-3 WBC/HPF NONE UA RBC (test code = RBCU) 0-2 RBC/HPF 0-3 UA EPITHELIAL CELLS (test 0-3 EPI/HPF 0-3 code = EPIU) UA BACTERIA (test code = TRACE NONE BACU) URINALYSIS [id number] 10:34:00 Test Item Value Reference Range Interpretation Comments UA COLOR (test code = COLU) YELLOW UA APPEARANCE (test code = CLEAR APPU) UA GLUCOSE DIPSTICK (test NORMAL mg/dl NORMAL code = DGLUU) UA BILIRUBIN DIPSTICK (test NEGATIVE mg/dL NEGATIVE code = BILU) UA KETONE DIPSTICK (test NEGATIVE mg/dl NEGATIVE code = KETU) UA SPECIFIC GRAVITY (test 1.010 1.000-1.030 code = SGU) UA BLOOD DIPSTICK (test NEGATIVE Alf/micL NEGATIVE code = HUEY) UA PH DIPSTICK (test code = 7.0 5.0-9.0 BG) UA PROTEIN DIPSTICK (test NEGATIVE mg/dl NEGATIVE code = PROU) UA UROBILINIOGEN DIPSTICK NORMAL mg/dl NORMAL (test code = URO) UA NITRITE DIPSTICK (test NEGATIVE NEGATIVE code = MICK) UA LEUKOCYTE ESTERASE NEGATIVE Sawyer/micL NEGATIVE DIPSTICK (test code = LEUU) UA WBC (test code = WBCU) WBC/HPF NONE UA RBC (test code = RBCU) RBC/HPF 0-3 UA EPITHELIAL CELLS (test EPI/HPF 0-3 code = EPIU) UA BACTERIA (test code = NONE BACU) CBC W/AUTO [id number] 10:25:00 Test Item Value Reference Range Interpretation Comments WHITE BLOOD CELL (test code = 10.4 K/mm3 4.5-11.0 N WBC) RED BLOOD CELL (test code = 4.42 M/mm3 4.40-5.90 N RBC) HEMOGLOBIN (test code = HGB) 13.0 gm/dL 13.0-17.0 N HEMATOCRIT (test code = HCT) 40.0 % 36.0-48.0 N MEAN CELL VOLUME (test code = 90.5 UM3 80.0-94.0 N MCV) MEAN CELL HGB (test code = MCH) 29.4 UUG 25.5-32.5 N MEAN CELL HGB CONCETRATION 32.5 gm/dL 29.0-35.5 N (test code = MCHC) RED CELL DISTRIBUTION WIDTH 13.8 % 11.5-15.0 N (test code = RDW) RED CELL DISTRIBUTION WIDTH SD 45.3 fL 34.8-50.2 N (test code = RDW-SD) PLATELET COUNT (test code = 248 K/mm3 150-400 N PLT) MEAN PLATELET VOLUME (test code 9.0 fl 7.4-10.4 N = MPV) NEUTROPHIL % (test code = NT%) 53.8 % 49.0-76.0 N IMMATURE GRANULOCYTE % (test 0.2 % 0.0-0.4 N code = IG%) LYMPHOCYTE % (test code = LY%) 34.8 % 23.0-38.0 N MONOCYTE % (test code = MO%) 8.2 % 1.0-10.0 N EOSINOPHIL % (test code = EO%) 2.3 % 1.0-5.0 N BASOPHIL % (test code = BA%) 0.7 % 0.0-1.0 N NUCLEATED RBC % (test code = 0.0 % 0.0-0.1 N NRBC%) NEUTROPHIL # (test code = NT#) 5.6 K/mm3 2.4-6.3 N IMMATURE GRANULOCYTE # (test 0.02 x10 3/uL 0.00-0.07 N code = IG#) LYMPHOCYTE # (test code = LY#) 3.6 K/mm3 1.2-4.0 N MONOCYTE # (test code = MO#) 0.9 K/mm3 0.0-0.6 H EOSINOPHIL # (test code = EO#) 0.2 K/MM3 0.0-0.7 N BASOPHIL # (test code = BA#) 0.1 K/mm3 0.0-0.2 N NUCLEATED RBC # (test code = 0.00 X10 3uL 0.00-0.01 N NRBC#) - [facility] 1 [id number] 09:01:00 [facility] [place] : 1985 Sex: M FAX: Jose King MD [place]: St: [facility] 1985 Age[facility]S: 35/M [address] [facility] Unit #: [id number] Loc: [place], [place]: [place] [id number] Acct: [id number] Dis Date: Status: REG ER PHONE #: [phone] Exam Date: 11/08/2020 0855 FAX #: [phone] Reason: SOB EXAMS: CPT CODE: [id number] XR CHEST 1 V 53346 Dictation location: [facility]. CHEST, FRONTAL VIEW HISTORY: SOB COMPARISON: Chest x-ray 01/24/14. FINDINGS: The lungs are clear without consolidation. No pleural effusion or pneumoth orax. The heart size is normal. The bones are unremarkable. IMPRESSION: No evidence of acute cardiopulmonary disease. at 0901 Reported and signed by: Alvaro Garcia M.D. CC: Jose King MD Technologist: JULIO KENT Trnscrd Date/Time/By: 11/08/2020 (900) : By: [id number] PAGE 1 Signed Report FAX: Jose King MD [place]: St: REG------- Name: BRUCE ALARCON [facility] [place] : 1985 Age/S: 35/M [address] [facility] [place] [address] Unit #: [id number] Loc: [place] [employer], [place]: [place] [address] Acct: [id number] Dis Date: Status: REG ER PHONE #: [phone] Exam Date: 11/08/2020 0872 FAX #: [phone] Reason: SOB EXAMS: CPT CODE: [id number] XR CHEST 1 V 67625 <Continued> Orig Print D/T: S: 11/08/2020 (0905) PAGE 2 Signed ReportCOVID-19 (ID NOW RAPID TESTING)2020-09-04 08:05:22 Test Item Value Reference Range Interpretation Comments SARS-CoV-2 Rapid ID NOW Not Detected Not Detected (test code = 00846-9) STEVE (test code = STEVE) ID NOW COVID-19 Assay is an isothermal nucleic acid amplification test intended for the qualitative detection of nucleic acid from SARS-CoV-2 viral RNA in nasopharyngeal (WELDING INSTRUCTOR) specimens. It is used under Emergency Use Authorization (EUA) by FDA. The limit of detection (LOD) of the assay is 125 Genome Equivalents/mL. A positive result is indicative of the presence of SARS-CoV-2 RNA. ?Clinical correlation with patient history and other diagnostic information is necessary to determine patient infection status. A negative (Not Detected) result does not preclude SARS-CoV-2 infection. In patients with clinical symptoms and other tests that are consistent with SARS-CoV-2 infection, negative results should be treated as presumptive negative and a new specimen should be tested with alternative PCR molecular test. Invalid: Please collect a new specimen for repeat patient testing if clinically indicated. Lab Interpretation Normal (test code = 05213-6) [facility]Immuno[facility] Comprehensive Drug [id number] 05:22:10 Test Item Value Reference Range Interpretation Comments AMPHET (test code = Presumptive Positive Negative A 6858704856) ELIZABETH U (test code = Negative Negative 8355601467) BENZO U (test code = Negative Negative 1753621612) Cocaine Metabolite (test Negative Negative code = 7796342150) METHADONE (test code = Negative Negative 2720621038) OPIATES (test code = Negative Negative 5811542565) PCP (test code = Negative Negative 2151294734) THC (test code = Negative Negative 2611376423) STEVE (test code = STEVE) Urine Drug Cutoff Ranges Cocaine: ? 150 ng/mLBenzodiazepines: ? ? 200 ng/mLMethadone: ? 300 ng/mLAmphetamine: ? 1,000 ng/mLOpiates: ? 300 ng/mLCannabinoids: ?50 ng/mLPhencyclidine: ? ? ? 25 ng/mLBarbiturates: ?200 ng/mL The results are to be used only for medical (i.e., treatment) purposes. Unconfirmed screening results must not be used for non-medical purposes (e.g., employment testing, legal testing). Lab Interpretation (test Abnormal code = 45652-1) [facility] ClinicEthanol (ETOH) [id number] 05:15:21 Test Item Value Reference Range Interpretation Comments ALCOHOL (test code = <10 mg/dL 5953895036) STEVE (test code = Toxic Greater than or STEVE) equal to 80 mg/dL. NOTE: Whole blood values are approximately 10% to 15% lower than serum and plasma. [facility] ClinicAcetaminophen2021-04-24 05:15:15 Test Item Value Reference Range Interpretation Comments ACETAMINOP (test code = <10.0 10.0-30.0 L 6103979057) STEVE (test code = STEVE) Toxic: Greater than 200 ug/mL @ 4 hour post ingestion or greater than 50 ug/mL @ 12 hour post ingestion Lab Interpretation (test Abnormal code = 71690-5) [facility] ClinicSalicylate2021-04-24 05:15:15 Test Item Value Reference Range Interpretation Comments SALICYLATE (test code <10 mg/L = 1031192977) STEVE (test code = STEVE) Therapeutic Range: ? Analgesic and Antipyretic Use ? 20-100 mg/L ? ? Anti-Inflammatory Use ? 100-250 mg/L Toxic Range: ? Greater than 300 mg/L [facility] ClinicComprehensive Metabolic Panel (74966) 2020-09-04 05:14:35 Test Item Value Reference Range Interpretation Comments NA (test code = 138 mmol/L 135-145 9589623707) K (test code = 3.9 mmol/L 3.5-5.0 3360608594) CL (test code = 99 mmol/L 98-108 3653041370) CO2 TOTAL (test code = 30 mmol/L 23-31 2284376840) AGAP (test code = 2-16 8175831670) BUN (test code = 7 mg/dL 7-23 2152971126) GLUCOSE (test code = 123 mg/dL 70-110 H 7217136928) CREATININE (test code = 0.61 mg/dL 0.60-1.25 9032239591) TOTAL BILI (test code = 0.6 mg/dL 0.1-1.7 8535411025) CALCIUM (test code = 10.1 mg/dL 8.6-10.6 8010683246) T PROTEIN (test code = 7.4 g/dL 6.3-8.2 3501849650) ALBUMIN (test code = 4.4 g/dL 3.5-5.0 3401593360) ALK PHOS (test code = 67 U/L 34-122 9618783835) ALTv (test code = 14 U/L 5-50 2-6) AST(SGOT) (test code = 20 U/L 13-40 8962370454) eGFR (test code = mL/min/1.73m2 7536813107) STEVE (test code = STEVE) Association of Glomerular Filtration Rate (GFR) and Staging of Kidney Disease* + --+ --+ ------+| GFR (mL/min/1.73 m2) ?| With Kidney Damage ?| ?Without Kidney Damage+ --------+ --------+ +| ?>90 ?| ?Stage one ?| ? Normal ?+ ---+ ---+ -------+| ?60-89 ?| ?Stage two ?| ? Decreased GFR ? + --+ --+ ------+| ?30-59 ?| ?Stage three ?| ? Stage three ? + --+ --+ ------+| ?15-29 ?| ?Stage four ? | ? Stage four ?+ ---+ ---+ -------+| ?<15 (or dialysis) ? ?| ?Stage five ? | ? Stage five ?+ ---+ ---+ -------+ *Each stage assumes the associated GFR level has been in effect for at least three months. ?Stages 1 to 5, with or without kidney disease, indicate chronic kidney disease. Notes: Determination of stages one and two (with eGFR >59mL/min/1.73 m2) requires estimation of kidney damage for at least three months as defined by structural or functional abnormalities of the kidney, manifested by either:Pathological abnormalities or Markers of kidney damage (including abnormalities in the composition of the blood or urine or abnormalities in imaging tests). Lab Interpretation Abnormal (test code = 85044-5) [facility] with [id number] 05:03:23 Test Item Value Reference Range Interpretation Comments WBC (test code = See_Comment [Automated 0690-2) message] The sy stem which generated this result transmitted reference range : 4.20 - 10.70 10*3/?L. The reference range was not used to interpret this result as normal/abnormal . RBC (test code = See_Comment [Automated 199-8) message] The sy stem which generated this result transmitted reference range : 4.26 - 5.52 10*6/?L. The reference range was not used to interpret this result as normal/abnormal . HGB (test code = 15.5 g/dL 12.2-16.4 718-7) HCT (test code = 43.1 % 38.4-49.3 4544-3) MCV (test code = 82.7 fL 81.7-95.6 787-2) MCH (test code = 29.8 pg 26.1-32.7 785-6) MCHC (test code = 36.0 g/dL 31.2-35.0 H 786-4) RDW-SD (test code = 37.8 fL 38.5-51.6 L 17717-7) RDW-CV (test code = 12.4 % 12.1-15.4 788-0) PLT (test code = See_Comment [Automated 777-3) message] The sy stem which generated this result transmitted reference range : 150 - 328 10*3/ ?L. The reference r chaka was not used to interpret this result as normal/abnormal . MPV (test code = 8.9 fL 9.8-13.0 L 56446-2) NRBC/100 WBC (test See_Comment [Automat ed code = 8012088234) message] The system which generated this result transmitted reference range : 0.0 - 10.0 /100 WBCs. The refer ence range was not u sed to interpret th is result as normal/abnormal . NRBC x10^3 (test code <0.01 See_Comment [Auto mated = 0044405652) message] The s ystem which generated this result transmitted reference range : 10*3/?L. The reference range was not used to interpret this result as normal/abnormal . GRAN MAT (NEUT) % 54.4 % (test code = 770-8) IMM GRAN % (test code 0.20 % = 9457529396) LYMPH % (test code = 35.1 % 736-9) MONO % (test code = 9.1 % 5905-5) EOS % (test code = 0.6 % 713-8) BASO % (test code = 0.6 % 706-2) GRAN MAT x10^3(ANC) 5.15 10*3/uL 1.99-6.95 (test code = 8544813255) IMM GRAN x10^3 (test <0.03 0.00-0.06 code = 1674343700) LYMPH x10^3 (test code 3.32 10*3/uL 1.09-3.23 H = 731-0) MONO x10^3 (test code 0.86 10*3/uL 0.36-1.02 = 742-7) EOS x10^3 (test code = 0.06 10*3/uL 0.06-0.53 711-2) BASO x10^3 (test code 0.06 10*3/uL 0.01-0.09 = 704-7) Lab Interpretation Abnormal (test code = 95331-5) [facility] ClinicDRUGS OF ABUSE SCREEN [id number] 22:55:00 Test Item Value Reference Range Interpretation Comments URN COCAINE (test code NEGATIVE NEGATIVE = COCAURN) URN CANNABINOIDS (test NEGATIVE NEGATIVE code = CANNABURN) URN AMPHETAMINE (test POSITIVE NEGATIVE A code = AMPHETURN) URN BARBITURATE (test NEGATIVE NEGATIVE code = BARBITURN) URN BENZODIAZEPINE NEGATIVE NEGATIVE Cut-off v alue:200 (test code = BENZOURN) ng/mL URN OPIATES (test code NEGATIVE NEGATIVE Cut-o ff value:2000 = OPIATURN) ng/mL URN PHENCYCLIDINE (PCP) NEGATIVE NEGATIVE Cuto ffs:Barbiturates (test code = PHENCURN) 200 ng/mLBenzodiaze pines 200 ng/ mLTHC Cannabinoids 50 ng/mLOpiates(Mo rphine) 2000 ng/mLAmphetamin e 1000 ng/mLCocaine 300 ng/ mLPCP phencyclidine 25 ng/mL Unconf irmed screening resul ts shouldnot be us ed for non-medical pur poses. BASIC METABOLIC [id number] 22:36:00 Test Item Value Reference Range Interpretation Comments SODIUM (test code = NA) 141 mEq/L 134-147 N POTASSIUM (test code = 4.1 mEq/L 3.4-5.0 N K) CHLORIDE (test code = 106 mEq/L 100-108 N CL) CARBON DIOXIDE (test 29 mEq/l 21-33 N code = CO2) ANION GAP (test code = 10 0-20 N GAP) GLUCOSE (test code = 108 mg/dL 70-110 N GLU) BLOOD UREA NITROGEN 8 mg/dL 7-18 N (test code = BUN) GLOMERULAR FILTRATION 129.9 105-110 H Units of measure = RATE (test code = GFR) ml/mi n/1.73 m2 CREATININE (test code = 0.7 mg/dL 0.6-1.3 N CREAT) CALCIUM (test code = 9.2 mg/dL 8.0-10.5 N CA) HEPATIC FUNCTION [id number] 22:36:00 Test Item Value Reference Range Interpretation Comments TOTAL PROTEIN (test code = PROT) 6.1 g/dL 6.4-8.2 L ALBUMIN (test code = ALB) 3.50 g/dL 3.4-5.0 N BILIRUBIN TOTAL (test code = 0.40 mg/dL 0.0-1.0 N BILT) BILIRUBIN DIRECT (test code = 0.10 MG/DL 0.0-0.30 N BILD) BILIRUBIN INDIRECT (test code = 0.30 MG/DL BILIND) SGOT/AST (test code = AST) 10 IUnit/L 15-37 L SGPT/ALT (test code = ALT) < 7 IUnit/L 30-65 L ALKALINE PHOSPHATASE TOTAL (test 73 IUnit/L 20-125 N code = ALKP) [id number] 22:36:00 Test Item Value Reference Range Interpretation Comments ACETAMINOPHEN (test code = ACET) < 0.2 mg/dL 1.0-3.0 L [id number] 22:36:00 Test Item Value Reference Range Interpretation Comments SALICYLATE (test code = WINSTON) < 3.0 mg/dL 0.0-20.0 N [id number] 22:36:00 Test Item Value Reference Range Interpretation Comments ALCOHOL (test < 3.0 mg/dL <10 N Ethyl Alcohol code = ALC) Interpretation: 100 mg/dL - Legally Intoxicated 300-400 mg/dL - Severely Intoxi cated >400 mg/dL - Potentially Let halThe pharmacological response to blood alcoho l levels mayvary from in dividual to individual. Signs of intoxicationcan be observed at lev els of 50-100 mg/dL. R esults are for Medical pur poses only, and not f or Legal orEmployment ev aluation purposes. UA RFLX MICR CULT IF [id number] 22:24:00 Test Item Value Reference Range Interpretation Comments UA COLOR (test code = COLU) YELLOW YEL/STRAW UA APPEARANCE (test code = CLEAR CLEAR APPU) UA GLUCOSE DIPSTICK (test code NEGATIVE NEGATIVE = DGLUU) UA BILIRUBIN DIPSTICK (test NEGATIVE NEGATIVE code = BILU) UA KETONE DIPSTICK (test code NEGATIVE NEGATIVE = KETU) UA SPECIFIC GRAVITY (test code 1.008 1.005-1.030 N = SGU) UA BLOOD DIPSTICK (test code = NEGATIVE NEGATIVE HUEY) UA PH DIPSTICK (test code = 7.0 5.0-7.0 N BG) UA PROTEIN DIPSTICK (test code NEGATIVE NEGATIVE = PROU) UA UROBILINIOGEN DIPSTICK 0.2 mg/dL 0.2-1.0 (test code = URO) UA NITRITE DIPSTICK (test code NEGATIVE NEGATIVE = MICK) UA LEUKOCYTE ESTERASE DIPSTICK NEGATIVE NEGATIVE (test code = LEUU) UA WBC (test code = WBCU) 0-3 WBC/HPF 0-3 UA RBC (test code = RBCU) 0-3 RBC/HPF 0-3 UA WBC NO REFLEX (test code = 0-3 WBC/HPF 0-3 WBCUCL) UA BACTERIA (test code = BACU) NONE SEEN /HPF NONE SEEN UA SQUAMOUS CELLS (test code = NONE SEEN /HPF NONE SEEN SQU) UA MUCUS (test code = MUCU) TRACE /LPF NONE SEEN Indication for culture: RiskForSepsis-no oth srcSpecimen Description: CLEAN CATCHCBC W/O [id number] 22:21:00 Test Item Value Reference Range Interpretation Comments WHITE BLOOD CELL (test code = 6.3 x10 3/uL 4.5-11.0 WBC) RED BLOOD CELL (test code = 4.86 x10 6/uL 4.00-5.60 N RBC) HEMOGLOBIN (test code = HGB) 14.3 g/dL 12.5-16.9 N HEMATOCRIT (test code = HCT) 42.7 % 37.5-50.7 N MEAN CELL VOLUME (test code = 87.9 fL 81.0-99.0 N MCV) MEAN CELL HGB (test code = MCH) 29.4 pg 27.0-33.0 N MEAN CELL HGB CONCETRATION 33.5 g/dL 33.0-37.0 N (test code = MCHC) RED CELL DISTRIBUTION WIDTH CV 13.0 % 11.5-14.5 N (test code = RDW) RED CELL DISTRIBUTION WIDTH SD 41.7 fL 37.0-54.0 N (test code = RDW-SD) PLATELET COUNT (test code = 238 x10 3/uL 150-400 N PLT) MEAN PLATELET VOLUME (test code 8.9 fL 7.0-9.0 N = MPV) Coronavirus 2018 nCoV [id number] 05:20:00 Test Item Value Reference Range Interpretation Comments Coronavirus 2019 Negative NEGATIVE Negative re sults should be nCoV Bedside (test treated a s presumptive and code = ifinconsistent with [id number]) clinical signs and symptoms, or ne cessaryfor patient managem ent, should be tested with an alternativemole cular assay. Negative result s do not preclude GQPV-XfK-4ahtko tion and should not be u sed as the sole basis forp atient management deci sions. Negative result s should beconsidered in the context of a patient's recent exposures,histo ry, presence of clinical sig ns and symptoms consis tentwith COVID-19. DRUGS OF ABUSE SCREEN [id number] 04:08:00 Test Item Value Reference Interpretation Comments Range URN COCAINE (test NEGATIVE NEGATIVE Cocaine cu t-off code = COCAURN) concentratio n: 300 ng/mL URN CANNABINOIDS NEGATIVE NEGATIVE Cannabinoid s cut-off (test code = concentration: 50 ng/mL CANNABURN) URN AMPHETAMINE POSITIVE NEGATIVE A UNCONFIRMED INITIAL (test code = SCREENING ONLY; SUGGEST AMPHETURN) ADDITIONALCONFI RMATORY TESTING.Ampheta mine cut-off concentration: 1000 ng/mL URN BARBITURATE NEGATIVE NEGATIVE Barbiturate cut-off (test code = concentration: 200 ng/mL BARBITURN) URN BENZODIAZEPINE NEGATIVE NEGATIVE Benzodiaz epine cut-off (test code = concentration: 200 ng/mL BENZOURN) URN OPIATES (test NEGATIVE NEGATIVE Opiates cu t-off code = OPIATURN) concentrati on: 200 ng/mL URN PHENCYCLIDINE NEGATIVE NEGATIVE Phencyclid ine(PCP) cut-off (PCP) (test code = concentra tion: 25 ng/ml PHENCURN) URN METHADONE (test NEGATIVE NEGATIVE code = METHAURN) Specimen comments: Clean CatchURINALYSIS [id number] 04:00:00 Test Item Value Reference Range Interpretation Comments UA COLOR (test code = YELLOW COLU) UA APPEARANCE (test code CLEAR = APPU) UA GLUCOSE DIPSTICK (test NORMAL mg/dl NORMAL code = DGLUU) UA BILIRUBIN DIPSTICK NEGATIVE mg/dL NEGATIVE (test code = BILU) UA KETONE DIPSTICK (test 50 mg/dl mg/dl NEGATIVE A code = KETU) UA SPECIFIC GRAVITY (test 1.030 1.000-1.030 code = SGU) UA BLOOD DIPSTICK (test 10 Alf/micL Alf/micL NEGATIVE A code = HUEY) UA PH DIPSTICK (test code 5.0 5.0-9.0 = BG) UA PROTEIN DIPSTICK (test NEGATIVE mg/dl NEGATIVE code = PROU) UA UROBILINIOGEN DIPSTICK 1.0 mg/dl mg/dl NORMAL A (test code = URO) UA NITRITE DIPSTICK (test NEGATIVE NEGATIVE code = MICK) UA LEUKOCYTE ESTERASE NEGATIVE Sawyer/micL NEGATIVE DIPSTICK (test code = LEUU) UA WBC (test code = WBCU) 0-3 WBC/HPF NONE UA RBC (test code = RBCU) 3-5 RBC/HPF 0-3 UA EPITHELIAL CELLS (test 2-5 EPI/HPF 0-3 A code = EPIU) UA BACTERIA (test code = FEW NONE BACU) Specimen comments: Clean CatchURINALYSIS [id number] 03:50:00 Test Item Value Reference Range Interpretation Comments UA COLOR (test code = YELLOW COLU) UA APPEARANCE (test code CLEAR = APPU) UA GLUCOSE DIPSTICK (test NORMAL mg/dl NORMAL code = DGLUU) UA BILIRUBIN DIPSTICK NEGATIVE mg/dL NEGATIVE (test code = BILU) UA KETONE DIPSTICK (test 50 mg/dl mg/dl NEGATIVE A code = KETU) UA SPECIFIC GRAVITY (test 1.030 1.000-1.030 code = SGU) UA BLOOD DIPSTICK (test 10 Alf/micL Alf/micL NEGATIVE A code = HUEY) UA PH DIPSTICK (test code 5.0 5.0-9.0 = BG) UA PROTEIN DIPSTICK (test NEGATIVE mg/dl NEGATIVE code = PROU) UA UROBILINIOGEN DIPSTICK 1.0 mg/dl mg/dl NORMAL A (test code = URO) UA NITRITE DIPSTICK (test NEGATIVE NEGATIVE code = MICK) UA LEUKOCYTE ESTERASE NEGATIVE Sawyer/micL NEGATIVE DIPSTICK (test code = LEUU) UA WBC (test code = WBCU) WBC/HPF NONE UA RBC (test code = RBCU) RBC/HPF 0-3 UA EPITHELIAL CELLS (test EPI/HPF 0-3 code = EPIU) UA BACTERIA (test code = NONE BACU) Specimen comments: Clean CatchBASIC METABOLIC [id number] 03:21:00 Test Item Value Reference Range Interpretation Comments SODIUM (test code = NA) 134 mmol/l 134.0-147.0 N POTASSIUM (test code = K) 3.2 mmol/L 3.6-5.2 L CHLORIDE (test code = CL) 99 mmol/l 98.0-107.0 N CARBON DIOXIDE (test code = CO2) 24.8 mmol/l 21.0-33.0 N ANION GAP (test code = GAP) 13.4 0-20 N GLUCOSE (test code = GLU) 78 mg/dl 70.0-110.0 N BLOOD UREA NITROGEN (test code = 11 mg/dl 7.0-18.0 N BUN) CREATININE (test code = CREAT) 0.62 mg/dL 0.60-1.30 N GFR NON BLACK (test code = 159 mL/min 105-110 H GFRNONBLACK) GFR BLACK (test code = GFRBLACK) 192 mL/min 127-133 H CALCIUM (test code = CA) 9.1 mg/dl 8.0-10.5 N Specimen comments: Clean i7 NetworksHEPATIC FUNCTION PANEL [id number] 03:21:00 Test Item Value Reference Range Interpretation Comments TOTAL PROTEIN (test code = PROT) 7.3 GM/DL 6.0-8.1 N ALBUMIN (test code = ALB) 3.9 gm/dL 3.2-4.7 N BILIRUBIN TOTAL (test code = BILT) 0.6 mg/dl 0.0-1.0 N BILIRUBIN DIRECT (test code = 0.1 mg/dl 0.0-0.3 N BILD) SGOT/AST (test code = AST) 14 Units/L 15-37 L SGPT/ALT (test code = ALT) 15 Units/L 12.0-78.0 N ALKALINE PHOSPHATASE TOTAL (test 77 Units/L 50.0-136.0 N code = ALKP) Specimen comments: Clean [id number] 03:21:00 Test Item Value Reference Range Interpretation Comments LIPASE (test code = LIP) 53 Units/L 65.0-230.0 L Specimen comments: Clean [id number] 03:21:00 Test Item Value Reference Range Interpretation Comments ALCOHOL (test code 0.00 gm/dL 0.00-0.00 N ETHYL ALC OHOL VALUES - = ALC) INTERPRETATION: 0.050 GM/DL - NOT INT OXICATED 0.100 GM/DL - INTOXICATED 0.3 50-0.450 GM/DL - SEVEREL Y INTOXICATED 0.5 50 GM/DL- FATAL INTOXICAT ION Specimen comments: Clean CatchCBC W/AUTO [id number] 03:07:00 Test Item Value Reference Range Interpretation Comments WHITE BLOOD CELL (test code = 13.3 K/mm3 4.5-11.0 H WBC) RED BLOOD CELL (test code = 5.02 M/mm3 4.40-5.90 N RBC) HEMOGLOBIN (test code = HGB) 14.8 gm/dL 13.0-17.0 N HEMATOCRIT (test code = HCT) 46.4 % 36.0-48.0 N MEAN CELL VOLUME (test code = 92.4 UM3 80.0-94.0 N MCV) MEAN CELL HGB (test code = MCH) 29.5 UUG 25.5-32.5 N MEAN CELL HGB CONCETRATION 31.9 gm/dL 29.0-35.5 N (test code = MCHC) RED CELL DISTRIBUTION WIDTH 12.5 % 11.5-15.0 N (test code = RDW) RED CELL DISTRIBUTION WIDTH SD 42.2 fL 34.8-50.2 N (test code = RDW-SD) PLATELET COUNT (test code = 146 K/mm3 150-400 L PLT) MEAN PLATELET VOLUME (test code 9.7 fl 7.4-10.4 N = MPV) NEUTROPHIL % (test code = NT%) 69.8 % 49.0-76.0 N IMMATURE GRANULOCYTE % (test 0.3 % 0.0-0.4 N code = IG%) LYMPHOCYTE % (test code = LY%) 21.6 % 23.0-38.0 L MONOCYTE % (test code = MO%) 7.3 % 1.0-10.0 N EOSINOPHIL % (test code = EO%) 0.6 % 1.0-5.0 L BASOPHIL % (test code = BA%) 0.4 % 0.0-1.0 N NUCLEATED RBC % (test code = 0.0 % 0.0-0.1 N NRBC%) NEUTROPHIL # (test code = NT#) 9.3 K/mm3 2.4-6.3 H IMMATURE GRANULOCYTE # (test 0.04 x10 3/uL 0.00-0.07 N code = IG#) LYMPHOCYTE # (test code = LY#) 2.9 K/mm3 1.2-4.0 N MONOCYTE # (test code = MO#) 1.0 K/mm3 0.0-0.6 H EOSINOPHIL # (test code = EO#) 0.1 K/MM3 0.0-0.7 N BASOPHIL # (test code = BA#) 0.1 K/mm3 0.0-0.2 N NUCLEATED RBC # (test code = 0.00 X10 3uL 0.00-0.01 N NRBC#) POCT TROPONIN I POC docked [id number] 16:06:00 Test Item Value Reference Range Interpretation Comments Troponin POC (test code 0.00 ng/mL 0.00-0.08 Phys ician Notified = [id number]) Lab Interpretation (test Normal code = 98326-7) [place] [address] LEAD [id number] 14:14:4112 LEAD EKG FOR [facility] Test Date: [id number] Name: BRUCE ALARCON Department: 5520Patient ID: [id number] Room: Gender: [employer] Operator: [id number]: 1985 Requested By: YANELI Santiago Number: [id number] Day MD: Husam Flores M.D. MeasurementsIntervals [place] Rate: 79 P: 51PR: 122 QRS: 64QRSD: 113 T: 40QT: 349 QTc: 402 Interpretive StatementsSINUS R HYTHMINCOMPLETE RIGHT BUNDLE BRANCH BLOCK [90+ ms QRS DURATION, TERMINAL R INV1/V2, 40+ ms S IN I/aVL/V4/V5/V6]Electronically Signed On 04-03-2020 14:17:38 GOLF INSTRUCTOR by Husam Flores M.D.[facility] [id number] 05:09:00 Test Item Value Reference Range Interpretation Comments SCREEN RPR (test NONREACTIVE NONREACTIVE code = SCRN RPR) NR = NON-REACTIVE R = REACTIVE ER SCREEN FOR HIV 09:48:00 Test Item Value Reference Range Interpretation Comments HIV 1/2 AB (test NEGATIVE NEGATIVE This test i s used for code = SCRN HIV) SCREENING p urposes only. All reactive re sults are prelimenary and confirmation re sults will follow. HEPATITIS C ANTIBODY [id number] 08:43:00 Test Item Value Reference Range Interpretation Comments SCRN HCV (test code NEGATIVE NEGATIVE Hepatiti s C Antibody test = SCRN HCV) is for screenin g purposes only. All react aster will be confirmed by additional test ing. THYROID STIMULATION [id number] 08:43:00 Test Item Value Reference Range Interpretation Comments TSH (test code = TSH) 0.39 UIU/ML 0.465-4.68 L LIPID [id number] 07:56:00 Test Item Value Reference Range Interpretation Comments CHOLEST (test code = 121 MG/DL 0-200 CHOLEST) TRIGLYCE (test code = 68 MG/DL 0-150 TRIGLYCE) HDL (test code = HDL) 27 MG/DL 30-65 L NEGATI VE RISK FACTOR FOR HEART DISEA SE IF HDL >/=60 mg/dl MAJOR RISK FACTOR FOR HEART DISEASE IF HDL <40 mg/dL CALC LDL (test code = 80 MG/DL <100 CALC LDL) % HEMOGLOBIN A1C (GLYCATED)2020-03-13 07:35:00 Test Item Value Reference Range Interpretation Comments HEMOGLOBIN A1C (test 4.8 % 0-6 TH ERAPEUTIC TARGET code = GLYCO-) FOR THE TREAT MENT OF DIABETES M ELLITUS PATIENTS IS < 7 % HBA1C. [facility] DIABETES CARE 2002;25:S33-S49 [id number] 22:16:00 Test Item Value Reference Range Interpretation Comments GLUCOSE (test code = URGLU) NEGATIVE MG/DL NEG-100 BILIRUBN (test code = URBILI) NEGATIVE NEGATIVE KETONE (test code = URKET) TRACE MG/DL NEGATIVE BLOOD (test code = URBLD) NEGATIVE UR PH (test code = URPH) 5.5 5.0-7.5 PROTEIN (test code = URPRO) TRACE MG/DL NEGATIVE NITRITES (test code = URNIT) NEGATIVE NEGATIVE UROBILINGEN (test code = 1.0 EU/DL 0.2-1.0 URURO) LEUKOCYT (test code = URLEU) NEGATIVE NEGATIVE UA COLOR (test code = UA YELLOW YELLOW COLOR) CLARITY (test code = CLARITY) CLEAR CLEAR SP GRAV (test code = URSPGRAV) 1.024 1.000-1.025 UAMICRO (test code = UAMICRO) YES WBC (test code = URWBC) 11 /HPF 0-5 H RBC (test code = URRBC) 4 /HPF 0-2 H CASTS (test code = CAST) 0 /LPF 0-3 UR EPI (test code = EPI) 38 /LPF BACTERIA (test code = NEGATIVE NONE BACTERIA) CRYSTALS (test code = MODERATE /HPF NONE CRYSTALS) CRYSTYPE (test code = CALC OX CRYSTYPE) URINE DRUG [id number] 22:04:00 Test Item Value Reference Range Interpretation Comments AMPHET (test code = POSITIVE NEGATIVE A This is an unconfirmed BAMP) screening. Res ult are to be used for medical purposes (treat ment) only. Not inte nded for non-medical pur poses. Cut-off concent ration for a positive result for each drug: Amphetamine - 1 ,000 ng/ml Barbitura te - 200 ng/ml Benzodiaz epine - 200 ng/ml Canna binoids - 50 ng/ml Coca ine - 300 ng/ml Opiat es - 300 ng/ml PCP - 25 ng/ml BARBITURATES (test NEGATIVE NEGATIVE code = BBAR) BENZO (test code = NEGATIVE NEGATIVE BBENZ) CANNABS (test code = NEGATIVE NEGATIVE BCANN) COCAINE (test code = NEGATIVE NEGATIVE BCOC) OPIATES (test code = NEGATIVE NEGATIVE BOPI) PCP (test code = NEGATIVE NEGATIVE BMTPCP) BLOOD ALCOHOL (ETOH)[id number] 21:53:00 Test Item Value Reference Range Interpretation Comments ALCOHOL BLOOD LEVEL <10 MG/DL 0-10 Results are to be used (test code = ALC BLD) for me dical purposes (treatment) onl y. Not intended for no n medical purpose s. [id number] 21:53:00 Test Item Value Reference Range Interpretation Comments SODIUM (test code = 140 MMOL/L 137-145 NA) K+ (test code = 4.0 MMOL/L 3.5-5.1 KSERUM) CHLORIDE (test code 102 MMOL/L 98-107 = CL) CO2 (test code = 30 MMOL/L 22-30 CO2) BUN (test code = 7 MG/DL 9-20 L BUN) CREA (test code = 0.6 MG/DL 0.8-1.5 L CREA) GLUCOSE (test code 87 MG/DL 70-99 Fasting glucose = GLUCOSE) normal <100 MG/ DL- [place] [employer] recommendation* * CALCIUM (test code 9.6 MG/DL 8.4-10.2 = CABLOOD) TOTPROT (test code 6.7 G/DL 6.3-8.2 = TOTPROT) ALBUMIN (test code 4.2 G/DL 3.5-5.0 = ALBSERUM) BILITOT (test code 0.4 MG/DL 0.2-1.3 = BILITOT) AST (test code = 15 U/L 15-46 AST) PHOSALK (test code 74 U/L 38-126 = PHOSALK) ALTV (test code = 10 U/L 13-69 L ALTV) GFR (test code = 165 A GFR of >9 0 GFR) mL/min/1.73m2 mL/min/1.73m2 is considered norm al. CREATINE [id number] 21:53:00 Test Item Value Reference Range Interpretation Comments CK (test code = CK) 28 U/L 55-170 L COVID SYMPTOMATIC ER [id number] 21:46:00 Test Item Value Reference Range Interpretation Comments CORONAVIRUS (COVID-19)BY PCR (test NEGATIVE code = [id number]) [id number] 21:41:00 Test Item Value Reference Range Interpretation Comments WBC (test code = 8.7 K/UL 3.5-10.9 WBC) RBC (test code = 5.06 M/UL 4.3-5.7 RBC) HGB (test code = 15.0 G/DL 13.0-17.9 HGB) HCT (test code = 45.2 % 38-52 HCT) MCV (test code = 89.3 FL 80-98 MCV) MCH (test code = 29.6 PG 28-32 MCH) MCHC (test code = 33.2 G/DL 32.5-36.5 MCHC) RDW (test code = 12.5 % 11.5-14.5 RDW) PLT (test code = 281 K/UL 150-450 PLT) MPV (test code = 8.9 FL 7.4-10.4 MPV) MANDIFF (test code = NO MANDIFF) SCAN (test code = NO SCAN) NEUT% (test code = 45.7 % 40-75 NEUT%) LYMPH% (test code = 44.3 % 24-44 H LYMPH%) MONO% (test code = 7.1 % 0-13 MONO%) EOS% (test code = 2.2 % 0-4 EOS%) BASO % (test code = 0.6 % 0-2 BASO%) IG (test code = IG) 0 % 0-1 IG% (test code = 0.1 % 0-1 IG% = Metam yelocytes, IG%) Myelocytes, and Promyelocytes. (Immature neutr ophils not including " bands".) > 3% IG indic ates risk of sepsis NRBC% (test code = 0 /100 WBC NRBC%) ABS NEUT (test code 4.0 K/UL 1.2-7.2 = NEUT) Hemoglobin [id number] 07:37:09 Test Item Value Reference Range Interpretation Comments Hemoglobin A1c (test code 4.6 % 4.0-5.8 Di abetic >=6.5 = Hemoglobin A1c) %Prediabet es 5.7-6.4 %Normal <5.7 % Triiodothyronine [id number] 15:09:28 Test Item Value Reference Range Interpretation Comments T3 Total (test code = T3 Total) >8.00 ng/mL 0.60-1.81 H Thyroxine Free [id number] 15:09:28 Test Item Value Reference Range Interpretation Comments T4 Free (test code = T4 Free) 1.37 ng/dL 0.89-1.76 Troponin [id number] 14:30:01 Test Item Value Reference Range Interpretation Comments Troponin-I (test <2 pg/mL <=45 The 99th pe rcentile URL code = Troponin-I) for the a ssay is <45 pg/ml. A rise a nd fall in Troponin I with at least one value above the 99th percentile with clinical evidence of kings cardial ischemia would support a diagnosis of AM I. A delta of at least 20% is recommended to assess acute changes i n results above the 99th percentile in serial measu rements. Serial cardiac troponin measurements ar e recommended at 0, 3, 6 hours. Lipid [id number] 13:01:17 Test Item Value Reference Range Interpretation Comments Cholesterol Total 127 mg/dL N Low-risk l evel (test code = (desirable) - < 200 Cholesterol Total) mg/dlMode rate-risk level (borderli ne) - 200-239 mg/dlHigh-risk level - ?240 mg/dl Triglycerides (test 48 mg/dL N Normal - <150 code = Triglycerides) mg/dlB orderline high - 150-199 mg/dl High - 200-499 mg/dl Very high - ?500 mg/ dl HDL (test code = HDL) 37.70 mg/dL N Low-ri sk level (desirable) - ? 60 mg/dlHigh-risk level (undesirable) - <40 mg/dl LDL (test code = LDL) 80 mg/dL N The eq uation being used in this calculation is LDL = (Chol - HDL) - (Trig / 5) VLDL (test code = 10 mg/dL 5-40 The equati on being VLDL) used in this calculation is VLDL = Trig / 5 Chol/HDL (test code = 3.4 ratio <=5.0 Chol/HDL) LDL/HDL Ratio (test 3 N The equa tion being code = LDL/HDL Ratio) used i n this calculation is LDL/HDL Ratio=L DL Calc/HDL Chol Thyroid Stimulating [id number] 13:01:17 Test Item Value Reference Range Interpretation Comments TSH (test code = TSH) 0.359 mcIU/mL 0.550-4.780 L RPR [id number] 12:39:41 Test Item Value Reference Range Interpretation Comments RPR Qual (test code = RPR Qual) Non-Reactive Non-Reactive Reactive Control (test code = Reactive Reactive Control) Weak Reactive Control (test Weak Reactive code = Weak Reactive Control) Non-Reactive Control (test code Non-Reactive = Non-Reactive Control) Lot # (test code = Lot #) [id number] N Expiration Dt (test code = 9.30.21 N Expiration Dt) Novel Coronavirus SARS-CoV-2, [id number] 15:57:17 Test Item Value Reference Range Interpretation Comments SARS-CoV-2 PCR NEGATIVE Negative Positive resu lts are (test code = indicative of a ctive SARS-CoV-2 PCR) infection wi th SARS-CoV-2; clinical correl ation with patient history and other diagnostic info rmation is necessary to de termine patient infecti on status.Presumpt dorie positive result s -INTERPRET WITH CAUTION: Resul t may not reflect if edu ent is actually positi ve. Patient should be treat ed based on clinical suspic ions. Negative result s do not preclude SARS-C oV-2 infection and s hould not be used as the sole basis for treatment o r other patient managem ent decisions. Nega tive results must be combined with clinical observations, p atient history, and epidemiological information.The Xpert Xpress SARS-CoV -2 test is only for use un [place] the Food and Drug Administration s Emergency Use Authorization." Urinalysis with Culture, if [id number] 14:12:37 Test Item Value Reference Range Interpretation Comments UA Color (test code = UA Color) YELLO Yellow UA Appear (test code = UA CLEAR Clear Appear) UA pH (test code = UA pH) 7.5 N UA Spec Grav (test code = UA 1.015 1.001-1.035 Spec Grav) UA Glucose (test code = UA NEG Negative Glucose) UA Bili (test code = UA Bili) NEG Negative UA Ketones (test code = UA 5 mg/dL Negative Ketones) UA Blood (test code = UA Blood) NEG Negative UA Protein (test code = UA NEG Negative Protein) UA Urobilinogen (test code = UA .2 mg/dL >0.2 Urobilinogen) UA Nitrite (test code = UA NEG Negative Nitrite) UA Leuk Est (test code = UA NEG Negative Leuk Est) UA Micro Ind? (test code = UA Not Indicated Not Indicated Micro Ind?) Urine DOA [id number] 14:04:46 Test Item Value Reference Range Interpretation Comments Amphetamine Screen Ur Positive Negative A The sp ecimen is (test code = presumptive pos itive Amphetamine Screen Ur) if th e analyte concentration i s equal to or greater t sanchez 1000 ng/ml.If confirmation of positive result is desired, please order Amphetamine Confirmation, U rine within 7 days. Barbiturate Screen Ur Negative Negative The sp ecimen is (test code = presumptive pos itive Barbiturate Screen Ur) if th e analyte concentration i s equal to or greater t sanchez 200 ng/ml.If confir mation of positive res ult is desired, please order Barbiturate Confirmation, U rine within 7 days. Benzodiazepines Ur Negative Negative The speci men is (test code = presumptive pos itive Benzodiazepines Ur) if the a nalyte concentration i s equal to or greater t sanchez 200 ng/ml.If confir mation of positive res ult is desired, please order Benzodiazephine Confirmation, U rine within 7 days. Cocaine Screen Ur (test Negative Negative The specimen is code = Cocaine Screen presum ptive positive Ur) if the analyte concentration i s equal to or greater t sanchez 300 ng/ml.If confir mation of positive res ult is desired, please order Cocaine Metabol ite Confirmation, U rine within 7 days. Opiate Screen Ur (test Negative Negative The s pecimen is code = Opiate Screen presump tive positive Ur) if the analyte concentration i s equal to or greater t sanchez 2000 ng/ml.If confirmation of positive result is desired, please order Opiate Confirm ation, Urine within 7 days. U PCP Scrn (test code = Negative Negative The specimen is U PCP Scrn) presumptive pos itive if the analyte concentration i s equal to or greater t sanchez 25 ng/ml.If confir mation of positive res ult is desired, please order Phencyclidine Confirmation, U rine within 7 days. Cannabinoid Screen Ur Negative Negative The sp ecimen is (test code = presumptive pos itive Cannabinoid Screen Ur) if th e analyte concentration i s equal to or greater t sanchez 50 ng/ml.If confir mation of positive res ult is desired, please order Cannabinoid (TH C) Confirmation, U rine within 7 days. U Methadone Scr (test Negative Negative The sp ecimen is code = U Methadone Scr) pres umptive positive if the analyte concentration i s equal to or greater t sanchez 300 ng/ml.If confir mation of positive res ult is desired, please order Methadone Confirmation, U rine within 7 days. U Propoxyphene (test Negative Negative The spe cimen is code = U Propoxyphene) presu mptive positive if the analyte concentration i s equal to or greater t sanchez 300 ng/ml.If confir mation of positive res ult is desired, please order Propoxyphene Confirmation wi thin 7 days. Comprehensive Metabolic [id number] 13:52:17 Test Item Value Reference Range Interpretation Comments Sodium Level (test code = Sodium 140.0 mmol/L 136.0-145.0 Level) Potassium Level (test code = 3.60 mmol/L 3.50-5.10 Potassium Level) Chloride Level (test code = 105.0 mmol/L 98.0-107.0 Chloride Level) CO2 (test code = CO2) 29 mmol/L 20-31 Anion Gap (test code = Anion 5.6 mmol/L 5.0-15.0 Gap) BUN (test code = BUN) 6 mg/dL 9-23 L Creatinine Level (test code = 0.80 mg/dL 0.70-1.30 Creatinine Level) BUN/Creat Ratio (test code = 7.5 ratio 10.0-20.0 L BUN/Creat Ratio) Glucose Level (test code = 91 mg/dL 74-106 Glucose Level) Calcium Level (test code = 9.1 mg/dL 8.3-10.6 Calcium Level) Alk Phos (test code = Alk Phos) 82 U/L 46-116 Bilirubin Total (test code = 0.7 mg/dL 0.2-1.1 Bilirubin Total) Albumin Level (test code = 4.5 g/dL 3.2-4.8 Albumin Level) Protein Total (test code = 7.2 g/dL 5.7-8.2 Protein Total) ALT (test code = ALT) 11 U/L 10-49 AST (test code = AST) 12 U/L <=34 Globulin (test code = Globulin) 2.7 g/dL 2.3-3.5 A/G Ratio (test code = A/G 1.7 g/dL 0.8-2.0 Ratio) Hemolysis (test code = 0 g/dL 1-2 Hemolysis) Icterus (test code = Icterus) 0 g/dL 1-2 Lipemia (test code = Lipemia) 0 g/dL 1-2 Comprehensive Metabolic [id number] 13:52:17 Test Item Value Reference Range Interpretation Comments Sodium Level (test 140.0 mmol/L 136.0-145.0 code = Sodium Level) Potassium Level 3.60 mmol/L 3.50-5.10 (test code = Potassium Level) Chloride Level (test 105.0 mmol/L 98.0-107.0 code = Chloride Level) CO2 (test code = 29 mmol/L 20-31 CO2) Anion Gap (test code 5.6 mmol/L 5.0-15.0 = Anion Gap) BUN (test code = 6 mg/dL 9-23 L BUN) Creatinine Level 0.80 mg/dL 0.70-1.30 (test code = Creatinine Level) BUN/Creat Ratio 7.5 ratio 10.0-20.0 L (test code = BUN/Creat Ratio) Glucose Level (test 91 mg/dL 74-106 code = Glucose Level) Calcium Level (test 9.1 mg/dL 8.3-10.6 code = Calcium Level) Alk Phos (test code 82 U/L 46-116 = Alk Phos) Bilirubin Total 0.7 mg/dL 0.2-1.1 (test code = Bilirubin Total) Albumin Level (test 4.5 g/dL 3.2-4.8 code = Albumin Level) Protein Total (test 7.2 g/dL 5.7-8.2 code = Protein Total) ALT (test code = 11 U/L 10-49 ALT) AST (test code = 12 U/L <=34 AST) Globulin (test code 2.7 g/dL 2.3-3.5 = Globulin) A/G Ratio (test code 1.7 g/dL 0.8-2.0 = A/G Ratio) eGFR AA (test code = >60 >=60 eGFR (e stimated eGFR AA) mL/min/1.73 m2 Glomerular Filtration Rate ) is an estimated va lue, calculated from the patient's serum creatinine usin g the MDRD equation. It is NOT the patient 's actual GFR. The eGFR provides a more clinically usef ul measure of kidn ey disease than se rum creatinine alone.This calculation elias es sex and race in to account, if the information is provided. If th e race is not provided, and t he patient is -Nila n, multiply by 1.2 12. If sex is not provided, and t he patient is fema le, multiply by 0.7 42. Results for pat ients <18 years of ag e have not been validated by th e MDRD study and should be interpreted wit h caution. eGFR R esult Interpretation: eGFR > or = 60 is in the Normal RangeeGF R < 60 may mean kid be diseaseeGFR < 1 5 may mean kidney failure Rang es recommended by the National Kidney Foundation, http://nkdep.ni h.gov Hemolysis (test code 0 g/dL 1-2 = Hemolysis) Icterus (test code = 0 g/dL 1-2 Icterus) Lipemia (test code = 0 g/dL 1-2 Lipemia) Alcohol [id number] 13:52:17 Test Item Value Reference Range Interpretation Comments Ethanol Level <3.0 mg/dL N The pharmacolo gical (test code = response to blo od alcohol Ethanol Level) levels may va ry from individual to i ndividual. The fatal madalyn ntration has been report ed to be >400 mg/dl. Comprehensive Metabolic [id number] 13:52:17 Test Item Value Reference Range Interpretation Comments Sodium Level (test 140.0 mmol/L 136.0-145.0 code = Sodium Level) Potassium Level 3.60 mmol/L 3.50-5.10 (test code = Potassium Level) Chloride Level (test 105.0 mmol/L 98.0-107.0 code = Chloride Level) CO2 (test code = 29 mmol/L 20-31 CO2) Anion Gap (test code 5.6 mmol/L 5.0-15.0 = Anion Gap) BUN (test code = 6 mg/dL 9-23 L BUN) Creatinine Level 0.80 mg/dL 0.70-1.30 (test code = Creatinine Level) BUN/Creat Ratio 7.5 ratio 10.0-20.0 L (test code = BUN/Creat Ratio) Glucose Level (test 91 mg/dL 74-106 code = Glucose Level) Calcium Level (test 9.1 mg/dL 8.3-10.6 code = Calcium Level) Alk Phos (test code 82 U/L 46-116 = Alk Phos) Bilirubin Total 0.7 mg/dL 0.2-1.1 (test code = Bilirubin Total) Albumin Level (test 4.5 g/dL 3.2-4.8 code = Albumin Level) Protein Total (test 7.2 g/dL 5.7-8.2 code = Protein Total) ALT (test code = 11 U/L 10-49 ALT) AST (test code = 12 U/L <=34 AST) Globulin (test code 2.7 g/dL 2.3-3.5 = Globulin) A/G Ratio (test code 1.7 g/dL 0.8-2.0 = A/G Ratio) eGFR AA (test code = >60 >=60 eGFR (e stimated eGFR AA) mL/min/1.73 m2 Glomerular Filtration Rate ) is an estimated va lue, calculated from the patient's serum creatinine usin g the MDRD equation. It is NOT the patient 's actual GFR. The eGFR provides a more clinically usef ul measure of kidn ey disease than se rum creatinine alone.This calculation elias es sex and race in to account, if the information is provided. If th e race is not provided, and t he patient is -Nila n, multiply by 1.2 12. If sex is not provided, and t he patient is fema le, multiply by 0.7 42. Results for pat ients <18 years of ag e have not been validated by [facility] MDRD study and should be interpreted wit h caution. eGFR R esult Interpretation: eGFR > or = 60 is in the Normal RangeeGF R < 60 may mean kid be diseaseeGFR < 1 5 may mean kidney failure Rang es recommended by the National Kidney Foundation, http://nkdep.ni h.gov eGFR Non-AA (test >60.00 >=60.00 eGFR (jung mated code = eGFR Non-AA) mL/min/1.73 m2 Glomer ular Filtration Rate ) is an estimated va lue, calculated from the patient's serum creatinine usin g the MDRD equation. It is NOT the patient 's actual GFR. The eGFR provides a more clinically usef ul measure of kidn ey disease than se rum creatinine alone.This calculation elias es sex and race in to account, if the information is provided. If th e race is not provided, and t he patient is -Nila n, multiply by 1.2 12. If sex is not provided, and t he patient is fema le, multiply by 0.7 42. Results for pat ients <18 years of ag e have not been validated by [facility] MDRD study and should be interpreted wit h caution. eGFR R esult Interpretation: eGFR > or = 60 is in the Normal RangeeGF R < 60 may mean kid be diseaseeGFR < 1 5 may mean kidney failure Rang es recommended by the National Kidney Foundation, http://nkdep.ni h.gov Hemolysis (test code 0 g/dL 1-2 = Hemolysis) Icterus (test code = 0 g/dL 1-2 Icterus) Lipemia (test code = 0 g/dL 1-2 Lipemia) Complete Blood Count with [id number] 13:40:06 Test Item Value Reference Range Interpretation Comments WBC (test code = WBC) 8.2 x10 4.4-10.5 RBC (test code = RBC) 4.96 x10 4.10-5.70 Hgb (test code = Hgb) 14.5 g/dL 13.4-17.4 Hct (test code = Hct) 43.7 % 38.7-52.0 MCV (test code = MCV) 88.10 fL 80.00-100.00 MCHC (test code = 33.20 g/dL 32.00-37.50 MCHC) RDW CV (test code = 12.3 % 11.5-14.5 RDW CV) MCH (test code = MCH) 29.2 pg 27.0-32.5 Platelets (test code = 311.0 x10 140.0-440.0 Platelets) MPV (test code = MPV) 8.8 fL N Slide Review (test Auto Auto Result cr eated by code = Slide Review) GL_SJM_ SLIDE_REV_AUTO nRBC (test code = 0 N nRBC) NRBC Abs (test code = 0.00 x10 N NRBC Abs) IPF (test code = IPF) 0 % N Automated [id number] 13:40:06 Test Item Value Reference Range Interpretation Comments Neutro Auto (test code = Neutro 52.6 % 36.0-70.0 Auto) Lymph Auto (test code = Lymph Auto) 38.6 % 12.0-44.0 [place] Auto (test code = [place] Auto) 6.8 % 0.0-11.0 Eos, Auto (test code = Eos, Auto) 1.3 % 0.0-7.0 Basophil Auto (test code = Basophil 0.6 % 0.0-2.0 Auto) Neutro Absolute (test code = Neutro 4.3 x10 1.6-7.4 Absolute) Lymph Absolute (test code = Lymph 3.16 x10 .50-4.60 Absolute) [place] Absolute (test code = [place] .56 x10 .00-1.20 Absolute) Eos Absolute (test code = Eos 0.11 x10 0.00-0.74 Absolute) Baso Absolute (test code = Baso 0.05 x10 0.00-0.21 Absolute) IG [id number] 13:40:06 Test Item Value Reference Range Interpretation Comments IG (test code = IG) 0.1 % 0.0-5.0 IG Abs (test code = IG Abs) 0 x10 N RPR [id number] 10:34:12 Test Item Value Reference Range Interpretation Comments RPR Qual (test code = RPR Qual) Non-Reactive Non-Reactive Reactive Control (test code = Reactive Reactive Control) Weak Reactive Control (test Weak Reactive code = Weak Reactive Control) Non-Reactive Control (test code Non-Reactive = Non-Reactive Control) Lot # (test code = Lot #) [id number] N Expiration Dt (test code = 02-10-2021 N Expiration Dt) Hemoglobin [id number] 08:03:51 Test Item Value Reference Range Interpretation Comments Hemoglobin A1c (test code 4.5 % 4.0-5.8 Di abetic >=6.5 = Hemoglobin A1c) %Prediabet es 5.7-6.4 %Normal <5.7 % Lipid [id number] 08:03:51 Test Item Value Reference Range Interpretation Comments Cholesterol Total 122 mg/dL N Low-risk l evel (test code = (desirable) - < 200 Cholesterol Total) mg/dlMode rate-risk level (borderli ne) - 200-239 mg/dlHigh-risk level - ?240 mg/dl Triglycerides (test 43 mg/dL N Normal - <150 code = Triglycerides) mg/dlB orderline high - 150-199 mg/dl High - 200-499 mg/dl Very high - ?500 mg/ dl HDL (test code = HDL) 33.10 mg/dL N Low-ri sk level (desirable) - ? 60 mg/dlHigh-risk level (undesirable) - <40 mg/dl LDL (test code = LDL) 80 mg/dL N The eq uation being used in this calculation is LDL = (Chol - HDL) - (Trig / 5) LDL, Direct (test code 76.9 mg/dL N Optim al - <100 = LDL, Direct) mg/dlNear optimal/above optimal - 100-1 29 mg/dlBorderline high - 130-159 mg/dl High - 160-189 mg/dl Very high - ?190 mg/ dl VLDL (test code = 9 mg/dL 5-40 The equati on being VLDL) used in this calculation is VLDL = Trig / 5 Chol/HDL (test code = 3.7 ratio <=5.0 Chol/HDL) LDL/HDL Ratio (test 4 N The equa tion being code = LDL/HDL Ratio) used i n this calculation is LDL/HDL Ratio=L DL Calc/HDL Chol Thyroid Stimulating [id number] 08:03:51 Test Item Value Reference Range Interpretation Comments TSH (test code = TSH) 0.634 mcIU/mL 0.550-4.780 [id number] 08:29:00 Test Item Value Reference Range Interpretation Comments GLUBED (test code = 101 MG/DL 70-110 N Performe d by certified 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) 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[facility] DRUGS OF ABUSE SCREEN [id number] 09:33:00 Test Item Value Reference Range Interpretation Comments URN COCAINE (test code NEGATIVE NEGATIVE = COCAURN) URN CANNABINOIDS (test NEGATIVE NEGATIVE code = CANNABURN) URN AMPHETAMINE (test POSITIVE NEGATIVE A code = AMPHETURN) URN BARBITURATE (test NEGATIVE NEGATIVE code = BARBITURN) URN BENZODIAZEPINE NEGATIVE NEGATIVE Cut-off v alue:200 (test code = BENZOURN) ng/mL URN OPIATES (test code NEGATIVE NEGATIVE Cut-o ff value:2000 = OPIATURN) ng/mL URN PHENCYCLIDINE (PCP) NEGATIVE NEGATIVE Cuto ffs:Barbiturates (test code = PHENCURN) 200 ng/mLBenzodiaze pines 200 ng/ mLTHC Cannabinoids 50 ng/mLOpiates(Mo rphine) 2000 ng/mLAmphetamin e 1000 ng/mLCocaine 300 ng/ mLPCP phencyclidine 25 ng/mL Unconf irmed screening resul ts shouldnot be us ed for non-medical pur poses. UA RFLX MICR CULT IF [id number] 09:24:00 Test Item Value Reference Range Interpretation Comments UA COLOR (test code = COLU) YELLOW YEL/STRAW UA APPEARANCE (test code = CLEAR CLEAR APPU) UA GLUCOSE DIPSTICK (test code NEGATIVE NEGATIVE = DGLUU) UA BILIRUBIN DIPSTICK (test NEGATIVE NEGATIVE code = BILU) UA KETONE DIPSTICK (test code NEGATIVE NEGATIVE = KETU) UA SPECIFIC GRAVITY (test code 1.023 1.005-1.030 N = SGU) UA BLOOD DIPSTICK (test code = NEGATIVE NEGATIVE HUEY) UA PH DIPSTICK (test code = 5.0 5.0-7.0 N BG) UA PROTEIN DIPSTICK (test code NEGATIVE NEGATIVE = PROU) UA UROBILINIOGEN DIPSTICK 0.2 mg/dL 0.2-1.0 (test code = URO) UA NITRITE DIPSTICK (test code NEGATIVE NEGATIVE = MICK) UA LEUKOCYTE ESTERASE DIPSTICK NEGATIVE NEGATIVE (test code = LEUU) UA WBC (test code = WBCU) 0-3 WBC/HPF 0-3 UA RBC (test code = RBCU) 0-3 RBC/HPF 0-3 UA WBC NO REFLEX (test code = 0-3 WBC/HPF 0-3 WBCUCL) UA BACTERIA (test code = BACU) NONE SEEN /HPF NONE SEEN UA SQUAMOUS CELLS (test code = NONE SEEN /HPF NONE SEEN SQU) UA MUCUS (test code = MUCU) 2+ /LPF NONE SEEN A Indication for culture: Delirium-if no other srcSpecimen Description: CLEAN CATCHDRUGS OF ABUSE SCREEN [id number] 09:14:00 Test Item Value Reference Range Interpretation Comments URN COCAINE (test code NEGATIVE NEGATIVE = COCAURN) URN CANNABINOIDS (test NEGATIVE NEGATIVE code = CANNABURN) URN AMPHETAMINE (test NEGATIVE code = AMPHETURN) URN BARBITURATE (test NEGATIVE NEGATIVE code = BARBITURN) URN BENZODIAZEPINE NEGATIVE NEGATIVE Cut-off v alue:200 (test code = BENZOURN) ng/mL URN OPIATES (test code NEGATIVE NEGATIVE Cut-o ff value:2000 = OPIATURN) ng/mL URN PHENCYCLIDINE (PCP) NEGATIVE NEGATIVE Cuto ffs:Barbiturates (test code = PHENCURN) 200 ng/mLBenzodiaze pines 200 ng/ mLTHC Cannabinoids 50 ng/mLOpiates(Mo rphine) 2000 ng/mLAmphetamin e 1000 ng/mLCocaine 300 ng/ mLPCP phencyclidine 25 ng/mL Unconf irmed screening resul ts shouldnot be us ed for non-medical pur poses. COMPREHENSIVE METABOLIC [id number] 20:16:00 Test Item Value Reference Range Interpretation Comments SODIUM (test code = NA) 139 mEq/L 134-147 N POTASSIUM (test code = 4.0 mEq/L 3.4-5.0 N K) CHLORIDE (test code = 108 mEq/L 100-108 N CL) CARBON DIOXIDE (test 26 mEq/L 21-33 N code = CO2) ANION GAP (test code = 9 0-20 N GAP) GLUCOSE (test code = 100 mg/dL 70-110 N GLU) BLOOD UREA NITROGEN 16 mg/dL 7-18 N (test code = BUN) GLOMERULAR FILTRATION 97.8 105-110 L Units of measure = RATE (test code = GFR) ml/mi n/1.73 m2 CREATININE (test code = 0.9 mg/dL 0.6-1.3 N CREAT) TOTAL PROTEIN (test 7.3 g/dL 6.4-8.2 N code = PROT) ALBUMIN (test code = 3.70 g/dL 3.4-5.0 N ALB) CALCIUM (test code = 8.6 mg/dL 8.0-10.5 N CA) BILIRUBIN TOTAL (test 0.4 MG/DL <1.5 N code = BILT) SGOT/AST (test code = 9 IUnit/L 15-37 L AST) SGPT/ALT (test code = 21 IUnit/L 15-65 N ALT) ALKALINE PHOSPHATASE 89 IUnit/L 20-125 N TOTAL (test code = ALKP) CREATINE KINASE (CK)2019-11-10 20:16:00 Test Item Value Reference Range Interpretation Comments CREATINE KINASE (CK) 69 35-232 N Result is in INTERNATIONAL (test code = CK) UNITS/LITER T4 [id number] 20:16:00 Test Item Value Reference Range Interpretation Comments T4 FREE (test code = T4F) 1.3 ng/dL 0.77-1.61 N TSH REFLEX TO [id number] 20:16:00 Test Item Value Reference Range Interpretation Comments TSH REFLEX TO FT4 (test code = 0.27 IU/mL 0.42-5.47 L TSHREFLEX) [id number] 20:16:00 Test Item Value Reference Range Interpretation Comments ALCOHOL (test code < 0.003 G/dL <0.003 Ethyl Alc ohol = ALC) Interpretation: 0.100 gm/dL - Legally Intoxic ated 0.300-0.40 0 gm/dL - Severely Into xicated >0.400 gm/dL - Potentially LethalResults a re for Medical purpose s only, and not for Leg al orEmployment ev aluation purposes. COMPREHENSIVE METABOLIC [id number] 20:02:00 Test Item Value Reference Range Interpretation Comments SODIUM (test code = NA) 139 mEq/L 134-147 N POTASSIUM (test code = 4.0 mEq/L 3.4-5.0 N K) CHLORIDE (test code = 108 mEq/L 100-108 N CL) CARBON DIOXIDE (test 26 mEq/L 21-33 N code = CO2) ANION GAP (test code = 9 0-20 N GAP) GLUCOSE (test code = 100 mg/dL 70-110 N GLU) BLOOD UREA NITROGEN 16 mg/dL 7-18 N (test code = BUN) GLOMERULAR FILTRATION 97.8 105-110 L Units of measure = RATE (test code = GFR) ml/mi n/1.73 m2 CREATININE (test code = 0.9 mg/dL 0.6-1.3 N CREAT) TOTAL PROTEIN (test 7.3 g/dL 6.4-8.2 N code = PROT) ALBUMIN (test code = 3.70 g/dL 3.4-5.0 N ALB) CALCIUM (test code = 8.6 mg/dL 8.0-10.5 N CA) BILIRUBIN TOTAL (test 0.4 MG/DL <1.5 N code = BILT) SGOT/AST (test code = 9 IUnit/L 15-37 L AST) SGPT/ALT (test code = 21 IUnit/L 15-65 N ALT) ALKALINE PHOSPHATASE 89 IUnit/L 20-125 N TOTAL (test code = ALKP) CREATINE KINASE (CK)2019-11-10 20:02:00 Test Item Value Reference Range Interpretation Comments CREATINE KINASE (CK) 69 35-232 N Result is in INTERNATIONAL (test code = CK) UNITS/LITER T4 [id number] 20:02:00 Test Item Value Reference Range Interpretation Comments T4 FREE (test code = T4F) ng/dL 0.77-1.61 TSH REFLEX TO [id number] 20:02:00 Test Item Value Reference Range Interpretation Comments TSH REFLEX TO FT4 (test code = 0.27 IU/mL 0.42-5.47 L TSHREFLEX) [id number] 20:02:00 Test Item Value Reference Range Interpretation Comments ALCOHOL (test code < 0.003 G/dL <0.003 Ethyl Alc ohol = ALC) Interpretation: 0.100 gm/dL - Legally Intoxic ated 0.300-0.40 0 gm/dL - Severely Into xicated >0.400 gm/dL - Potentially LethalResults a re for Medical purpose s only, and not for Leg al orEmployment ev aluation purposes. CBC W/O [id number] 19:53:00 Test Item Value Reference Range Interpretation Comments WHITE BLOOD CELL (test code = 13.86 x10 3/uL 4.5-11.0 H WBC) RED BLOOD CELL (test code = 5.05 x10 6/uL 4.00-5.60 N RBC) HEMOGLOBIN (test code = HGB) 15.1 g/dL 12.5-16.9 N HEMATOCRIT (test code = HCT) 43.8 % 37.5-50.7 N MEAN CELL VOLUME (test code = 86.7 fL 81.0-99.0 N MCV) MEAN CELL HGB (test code = 29.9 pg 27.0-33.0 N MCH) MEAN CELL HGB CONCETRATION 34.5 g/dL 33.0-37.0 N (test code = MCHC) RED CELL DISTRIBUTION WIDTH CV 12.6 % 11.5-14.5 N (test code = RDW) RED CELL DISTRIBUTION WIDTH SD 39.9 fL 37.0-54.0 N (test code = RDW-SD) PLATELET COUNT (test code = 285 x10 3/uL 150-400 N PLT) MEAN PLATELET VOLUME (test 9.0 fL 7.0-9.0 N code = MPV) COMPREHENSIVE METABOLIC [id number] 19:48:00 Test Item Value Reference Range Interpretation Comments SODIUM (test code = NA) 139 mEq/L 134-147 N POTASSIUM (test code = K) 4.0 mEq/L 3.4-5.0 N CHLORIDE (test code = CL) 108 mEq/L 100-108 N CARBON DIOXIDE (test code = CO2) 26 mEq/L 21-33 N ANION GAP (test code = GAP) 9 0-20 N GLUCOSE (test code = GLU) 100 mg/dL 70-110 N BLOOD UREA NITROGEN (test code = 16 mg/dL 7-18 N BUN) GLOMERULAR FILTRATION RATE (test 105-110 code = GFR) CREATININE (test code = CREAT) mg/dL 0.6-1.3 TOTAL PROTEIN (test code = PROT) g/dL 6.4-8.2 ALBUMIN (test code = ALB) g/dL 3.4-5.0 CALCIUM (test code = CA) 8.6 mg/dL 8.0-10.5 N BILIRUBIN TOTAL (test code = BILT) MG/DL <1.5 SGOT/AST (test code = AST) IUnit/L 15-37 SGPT/ALT (test code = ALT) IUnit/L 15-65 ALKALINE PHOSPHATASE TOTAL (test IUnit/L 20-125 code = ALKP) CREATINE KINASE (CK)2019-11-10 19:48:00 Test Item Value Reference Range Interpretation Comments CREATINE KINASE (CK) (test code = CK) 35-232 TSH REFLEX TO [id number] 19:48:00 Test Item Value Reference Range Interpretation Comments TSH REFLEX TO FT4 (test code = IU/mL 0.42-5.47 TSHREFLEX) [id number] 19:48:00 Test Item Value Reference Range Interpretation Comments ALCOHOL (test code = ALC) G/dL <0.003 ALCOHOL, [id number] 23:17:00 Test Item Value Reference Range Interpretation Comments Alcohol % (test code = 0.03 % 0.00-0.00 H Oscar ol % 0.00 - 0.10 ALCPC) Sub-clinical 0.11 - 0.20 Emotion al Instability 0.21 - 0.30 Confusion 0.31 - 0.40 Stupor 0.41 - 0.50 Co ma >.50 Fa nhi ACETAMINOPHEN (Tyenol)2019-09-12 19:00:00 Test Item Value Reference Range Interpretation Comments Acetaminophen (test code = ACET) 0 ug/ml 10-30 L ALCOHOL, [id number] 19:00:00 Test Item Value Reference Range Interpretation Comments Alcohol % (test code = 0.12 % 0.00-0.00 H Oscar ol % 0.00 - 0.10 ALCPC) Sub-clinical 0.11 - 0.20 Emotion al Instability 0.21 - 0.30 Confusion 0.31 - 0.40 Stupor 0.41 - 0.50 Co ma >.50 Fa nhi TSH (Ultra Sensitive)2019-09-12 18:59:00 Test Item Value Reference Range Interpretation Comments TSH (test code = TSH) 1.15 mIU/L 0.46-4.68 [id number] 18:58:00 Test Item Value Reference Range Interpretation Comments Glucose (test code 92 mg/dl 75-110 = GLU) BUN (test code = 7.0 mg/dl 6.0-17.0 BUN) Creatinine (test 0.9 mg/dl 0.4-1.2 code = CREA) Sodium (test code = 139 mmol/l 137-145 NA) Potassium (test 3.9 mmol/l 3.5-5.0 code = K) Chloride (test code 103 mmol/l 98-107 = CL) CO2 (test code = 27 mmol/l 22-30 CO2) Calcium (test code 9.0 mg/dl 8.4-10.2 = CALC) T Protein (test 8.1 gm/dl 5.1-8.7 code = TP) Albumin (test code 4.3 gm/dl 3.5-4.6 = ALB) A/G Ratio (test 1.1 % 1.1-2.2 code = AGRAT) AST (SGOT) (test 18 U/L 11-36 code = AST) ALT (SGPT) (test 29 U/L 11-40 code = ALT) Alkaline Phos (test 90 U/L 47-114 code = ALKP) Total Bilirubin 0.3 mg/dl 0.2-1.2 (test code = TBIL) Globulin (test code 3.8 gm/dl 2.3-3.5 H = GLOBU) Calcium, Corrected 8.8 mg/dl 8.4-10.2 Various f ormulas exist (test code = for corrected s darrel CALCCORR) calcium results , each yielding differ ent values. This corrected resul t was based on the fo rmula: Corrected Calci um = SerumCalcium + [0.8 * ( 4 - SerumAlbu min)] EGFR if >60 [place] (test code mL/min/1.73m\\ = EGFRAA) S\\2 EGFR if Non- >60 Estimate d Glomerular [place] (test code mL/min/1.73m\\ Filtrat ion Rate (eGFR) = EGFRNA) S\\2 Reference Inter vals Decision Points for 18 years and older and average body ma ss: >= 60 Does not exc lude kidney disease. 30 - 59 Suggests modera te chronic kidney disease and indicat es the need for furthe r investigation including asses sment of proteinuria and cardiovascular factors. < 30 Usually in dicates a need for refe rral for assessment and management of c hronic kidney failure. SALICYLATES (Aspirin)2019-09-12 18:55:00 Test Item Value Reference Range Interpretation Comments Salicylate (test code = SALI) 1.3 2.8-20.0 L DRUG SCREEN [id number] 18:55:00 Test Item Value Reference Range Interpretation Comments Amphetamines (test code NEG. The following table = AMPHET) provides an int erpretive guide for the D rugs of Abuse ran on e Siemens [place] analyzer listed there in: Amphetamines < 1000 ng/ml = Negati ve Barbituates < 200 ng/ml = Negati ve Benzodiazapines < 200 ngml = Negati ve Cocaine < 300 ng/ml = Negati ve Methadone < 300 ng/ml = Negati ve Opiate < 300 ng/ml = Negati ve PCP < 25 ng/ml = Negati ve THC < 50 ng/ml = Negati ve Results equal t o or greater than e above cut-off values = Presumptive Pos itive. Confirmation of Presumptive Pos itive results are davian ilable upon request. BARBITUATES (test code = NEG. ELIZABETH) Benzodiazepines (test NEG. code = BENZO) Cocaine (test code = NEG. BRENDA) Methadone (test code = NEG. MTD) Opiates (test code = NEG. OPIAT) PHENCYCLIDINE, PCP (test NEG. code = PCP) Cannabinoids, THC (test NEG. code = THC) CBC WITH AUTO [id number] 18:36:00 Test Item Value Reference Range Interpretation Comments WBC (test code = WBC) 9.60 10\\S\\3/ul 4.80-10.80 RBC (test code = RBC) 4.95 10\\S\\6/ul 4.70-6.10 Hemoglobin (test code = HGB) 14.8 gm/dl 14.0-18.0 Hematocrit (test code = HCT) 42.5 % 42.0-50.0 MCV (test code = MCV) 85.9 fL 80.0-94.0 MCH (test code = MCH) 29.9 pg 27.0-31.0 MCHC (test code = MCHC) 34.8 gm/dl 33.0-37.0 RDW (test code = RDWVC) 12.6 % 11.5-14.5 Platelet (test code = PLT) 314 10\\S\\3/ul 130-400 MPV (test code = MPV) 8.2 fL 7.4-10.4 A NE% (test code = NE) 44.5 % 42.0-75.0 LY% (test code = LY) 45.9 % 13.0-42.0 H MO% (test code = MO) 6.0 % 4.0-14.0 EO% (test code = EO) 2.8 % 1.0-5.0 BA% (test code = BA) 0.6 % 0.0-3.0 IG% (test code = IG%) 0.2 % 0.0-0.4 NRBC, Auto (test code = 0 /100WBC 0-2 NRBC_AUTO) URINALYSIS WITHOUT [id number] 18:36:00 Test Item Value Reference Range Interpretation Comments Color (test code = UCOLR) Yellow Lt. Yellow A Clarity (test code = UCLAR) Clear Glucose (test code = UGLUC) Negative Negative N Bilirubin (test code = UBILI) Negative Negative N Ketones (test code = UKET) Negative Negative N Specific Aline (test code = <=1.005 1.005-1.030 A USPGR) Blood (test code = UBLD) Negative Negative N PH (test code = UPH) 5.0 4.5-8.0 A Protein (test code = UPROT) Negative Negative N Urobilinogen (test code = U UROB) 0.2 E.U./dL >0.2 A Nitrite (test code = UNITR) Negative Negative N Leukocyte Esterase (test code = Negative Negative N ULEUK) RPR, [id number] 04:07:00 Test Item Value Reference Range Interpretation Comments RPR (test code = RPR) Non-Reactive Non-Reactive N [id number] 23:40:00 Test Item Value Reference Range Interpretation Comments Amphetamine (test code Negative Negative N For d iagnostic purposes = AMPH) only, positive results should always b e assessedin conjunctionwith the patient's medic al history,clinica l examination and otherfindings.T o fulfill legal requirements, a more specific altern ate chemical method must be used inorder to obtain a Confirmed franklin lytical result. GC/MS i s the preferred confi rmatory method. Barbiturates (test Negative Negative N code = ELIZABETH) Benzodiazepine (test Negative Negative N code = LISA) Cocaine (test code = Negative Negative N COCA) Methadone (test code = Negative Negative N MTHD) Opiates (test code = Negative Negative N OPIA) PCP (test code = PCP) Negative Negative N Propoxyphene (test Negative Negative N code = PROPOX) THC (test code = THC) POSITIVE Negative A Comprehensive Metabolic [id number] 23:34:00 Test Item Value Reference Range Interpretation Comments Sodium (test code = 138 mmol/L 135-145 N NA) Potassium (test 3.5 mmol/L 3.5-5.1 N code = K) Chloride (test code 102 mmol/L 98-105 N = CL) Carbon Dioxide 29 mmol/L 22-29 N (test code = CO2) Glucose (test code 85 mg/dL 70-115 N = GLU) Blood Urea Nitrogen 7 mg/dL 6-20 N (test code = BUN) Creatinine (test 0.8 mg/dL 0.7-1.2 N code = CREAT) Calcium (test code 9.3 mg/dL 8.3-10.5 N = CA) Prot Total (test 6.8 g/dL 6.4-8.3 N code = TP) Albumin (test code 4.0 g/dL 3.5-5.2 N = ALB) A/G Ratio (test 1.4 Ratio code = AGRATIO) Globulin (test code 2.8 2.9-3.1 L = GLOB) Bili Total (test 0.3 mg/dL 0.1-0.9 N code = TBIL) Alk Phos (test code 74 U/L 40-129 N = APHOS) AST (test code = 14 U/L 1-40 N AST) ALT (test code = 13 U/L 1-41 N ALT) BUN/Creatinine 8.8 Ratio (test code = BCRATIO) Anion Gap (test 7 mmol/L 7-16 N code = AGAP) Estimated GFR (test >60 eGFR (es timated code = GFR) mL/min/1.73m2 Glomerular Joe tration Rate) is an est imated value,calculate d from the patient's s darrel creatinine usin g the MDRD equation.I t is NOT the patient 's actual GFR. The eGFR provides a more clinicallyusefu l measure of kidn ey disease than se rum creatinine alone.This calculation elias es sex and race into account, if the informationis provided. If th e race is not provided , and the patient isAfrican-Ameri can, multiply by 1.2 12. If sex is not prov ided, and thepatient is female, multipl y by 0.742. Results for patients <18 ye ars ofage have not been validated by th e MDRD study and shoul d be interpretedwith caution.eGFR Re sult Interpretation: eGFR > or = 60 is in t he Normal RangeeGF R < 60 may mean kidney diseaseeGFR < 1 5 may mean kidney failureRange s recommended by the National Kidney Foundation,http ://nkd ep.nih.gov Alcohol/Ethanol, [id number] 23:34:00 Test Item Value Reference Range Interpretation Comments Alcohol, Ethyl <0.01 g/dL 0.00-0.01 N Intoxicated 0.080 (test code = ETOH) g/dL or m ore Urinalysis [id number] 23:24:00 Test Item Value Reference Range Interpretation Comments Color (test code = COLOR) Straw Yellow,Straw,Pl N yellow Clarity (test code = Clear Clear N CLAR) Specific Aline (test 1.002 1.001-1.035 N code = SPGR) pH (test code = PH) 6.5 5.0-9.0 N Ketone (test code = KET) Negative mg/dL Negative N Glucose (test code = Negative mg/dL Negative N GLUCUR) Protein (test code = Negative mg/dL Negative N PROT) Bilirubin (test code = Negative mg/dL Negative N BILI) Occult Blood (test code = Negative Negative N UDOB) Urobilinogen (test code = 0.2 mg/dL 0.2-1.0 N UROB) Nitrite (test code = NIT) Negative Negative N Leuk Esterase (test code Negative Negative N = LEUK) Micros Exam (test code = Not indicated MEXAM) CBC with [id number] 22:46:00 Test Item Value Reference Range Interpretation Comments WBC (test code = WBC) 8.9 K/cumm 4.4-10.5 N RBC (test code = RBC) 4.64 M/cumm 4.10-5.70 N Hemoglobin (test code = HGB) 13.5 gm/dL 13.4-17.4 N Hematocrit (test code = HCT) 40.3 % 38.7-52.0 N MCV (test code = MCV) 86.8 fL 80-100 N MCH (test code = MCH) 29.1 pg 27.0-32.5 N MCHC (test code = MCHC) 33.6 g/dL 32.0-37.5 N RDW (test code = RDW) 13.3 % 11.5-14.5 N Platelet Count (test code = 331 K/cumm 140-440 N PLTCT) MPV (test code = MPV) 6.5 fL Diff Method (test code = DIFFM) Auto Neutrophil (test code = NEUT) 51.1 % 36-70 N Lymphocyte (test code = LYMPH) 40.8 % 12-44 N Monocyte (test code = MONO) 6.2 % 0-11 N Eosinophil (test code = EOS) 1.2 % 0-7 N Basophil (test code = BASO) 0.6 % 0-2 N Neutro Abs (test code = ANEUT) 4.6 K/cumm 1.6-7.4 N Lymph Abs (test code = ALYMPH) 3.6 K/cumm 0.5-4.6 N [place] Abs (test code = AMONO) 0.6 K/cumm 0.0-1.2 N Eos Abs (test code = AEOS) 0.10 K/cumm 0.00-0.74 N Baso Abs (test code = ABASO) 0.1 K/cumm 0.00-0.21 N
--- NOTE | 2021-05-14 17:17 | RAD REPORT ---
EXAM DESCRIPTION: RAD - Chest Single View - 05/14/2021 4:29 pm CLINICAL HISTORY: SOB;Cough COMPARISON: None TECHNIQUE: AP portable chest image was obtained 05/14/2021 4:29 pm . FINDINGS: Lungs are clear. Heart and vasculature are normal. No measurable pleural effusion and no p neumothorax. No acute bony abnormality seen. No acute aortic findings suspected. IMPRESSION: No acute cardiopulmonary process.
[2021-05-14 18:06] LABS: SARS-COV-2 RT PCR POSITIVE (NEGATIVE)
--- NOTE | 2021-05-14 18:22 | ER ---
Nurse's Notes [facility] Name: Talib Hutchins Age: 36 yrs Sex: Male : 1985 Arrival Date: 05/14/2021 Time: 15:29 Bed DIS4 Private MD: Diagnosis: SARS-associated coronavirus as the cause of diseases classified elsewhere Presentation: 05/14 16:00 Chief complaint: Patient states: chest congestion, diff breathing flu symptoms , no iw known exposure, low grade fever , started yesterday. Coronavirus screen: Client presents with at least one sign or symptom that may indicate coronavirus-19. Ebola Screen: Patient negative for fever greater than or equal to 101.5 degrees Fahrenheit, and additional compatible Ebola Virus Disease symptoms Patient denies exposure to infectious person. Patient denies travel to an Ebola-affected area in the 21 days before illness onset. No symptoms or risks identified at this time. Initial Sepsis Screen: Does the patient meet any 2 criteria? No. Patient's initial sepsis screen is negative. Does the patient have a suspected source of infection? No. Patient's initial sepsis screen is negative. Risk Assessment: Do you want to hurt yourself or someone else? Patient reports no desire to harm self or others. Onset of symptoms was May 14, 2021. 16:00 Method Of Arrival: Ambulatory iw 16:00 Acuity: KUMAR 4 iw Triage Assessment: 16:05 General: Appears in no apparent distress. Behavior is calm, cooperative. iw Historical: - Allergies: 16:03 No Known Allergies; iw - Home Meds: 16:03 Depakote Oral [Active]; benztropine 1 mg Oral tab 2 times per day [Active]; Risperdal 3 iw mg Oral tab 1 tab once daily [Active]; - PMHx: 16:03 Anxiety; iw Screenin:33 Abuse screen: Denies threats or abuse. Denies injuries from another. Nutritional iw screening: No deficits noted. Tuberculosis screening: No symptoms or risk factors identified. Fall Risk None identified. Assessment: 16:05 General: Appears in no apparent distress. Behavior is cooperative, anxious. General: iw Reports feeling ill for fatigue for. Pain: Complains of pain in head. Neuro: Level of Consciousness is awake, alert, obeys commands, Oriented to person, place, time, situation, Moves all extremities. Full function. Respiratory: Reports cough that is. Vital Signs: 16:02 Pulse 124; Resp 20; Temp 98.2; Pulse Ox 97% on R/A; Weight 104.33 kg; Height 5 ft. 11 iw in. (180.34 cm); 16:02 Body Mass Index 32.08 (104.33 kg, 180.34 cm) iw ED Course: 15:29 Patient arrived in ED. mr 16:01 Triage completed. iw 16:05 Arm band placed on right wrist. iw 16:15 Patient has correct armband on for positive identification. iw 16:29 CXR XRAY In Process Unspecified. EDFL 18:16 Jake Lazo MD is Attending Physician. ajay 18:20 [facility] Devi [facility]. javed 18:25 Vandana Noe, RN is Primary Nurse. iw 18:31 No provider procedures requiring assistance completed. Patient did not have IV access iw during this emergency room visit. Administered Medications: No medications were administered Outcome: 18:21 Discharge ordered by . javed 18:32 Discharged to home ambulatory. iw 18:32 Condition: good 18:32 Discharge instructions given to patient, Instructed on discharge instructions, follow up and referral plans. Demonstrated understanding of instructions, follow-up care, medications. 18:33 Patient left the ED. eb Signatures: Dispatcher [employer] [facility] Jake Lazo MD MD cha Rivera, Mary mr Vandana Noe, RN RN Kerwin Devi PA PA [id number] Botello, Elizabeth eb
[2021-05-14 18:44] VITALS: TEMP 98.2; O2SAT 97
--- NOTE | 2021-05-15 18:33 | EDPHYS ---
Physician Documentation [facility] Name: Talib Hutchins Age: 36 yrs Sex: Male : 1985 Arrival Date: 05/14/2021 Time: 15:29 Bed DIS4 Private MD: ED Physician Jake Lazo HPI: 05/14 18:40 This 36 yrs old Male presents to ER via Ambulatory with complaints of Flu Symptoms. jr8 18:40 Patient stated that he has had cough and shortness of breath for the past couple of jr8 days. Denies any other symptoms at this time. Currently at [facility] for drug rehab. Severity of symptoms: At their worst the symptoms were mild in the emergency department the symptoms are unchanged. The patient has not experienced similar symptoms in the past. The patient has not recently seen a physician. Historical: - Allergies: 16:03 No Known Allergies; iw - Home Meds: 16:03 Depakote Oral [Active]; benztropine 1 mg Oral tab 2 times per day [Active]; Risperdal 3 iw mg Oral tab 1 tab once daily [Active]; - PMHx: 16:03 Anxiety; iw ROS: 18:40 Eyes: Negative for injury, pain, redness, and discharge, ENT: Negative for injury, jr8 pain, and discharge, Neck: Negative for injury, pain, and swelling, Cardiovascular: Negative for chest pain, palpitations, and edema, Abdomen/GI: Negative for abdominal pain, nausea, vomiting, diarrhea, and constipation, Back: Negative for injury and pain, MS/Extremity: Negative for injury and deformity, Skin: Negative for injury, rash, and discoloration, Neuro: Negative for headache, weakness, numbness, tingling, and seizure. 18:40 Respiratory: Positive for cough, shortness of breath. Exam: 18:40 Eyes: Pupils equal round and reactive to light, extra-ocular motions intact. Lids and jr8 lashes normal. Conjunctiva and sclera are non-icteric and not injected. Cornea within normal limits. Periorbital areas with no swelling, redness, or edema. ENT: Nares patent. No nasal discharge, no septal abnormalities noted. Tympanic membranes are normal and external auditory canals are clear. Oropharynx with no redness, swelling, or masses, exudates, or evidence of obstruction, uvula midline. Mucous membranes moist. Neck: Trachea midline, no thyromegaly or masses palpated, and no cervical lymphadenopathy. Supple, full range of motion without nuchal rigidity, or vertebral point tenderness. No Meningismus. Cardiovascular: Tachycardic with a normal S1 and S2. No gallops, murmurs, or rubs. Normal PMI, no JVD. No pulse deficits. Respiratory: Lungs have equal breath sounds bilaterally, clear to auscultation and percussion. No rales, rhonchi or wheezes noted. No increased work of breathing, no retractions or nasal flaring. Abdomen/GI: Soft, non-tender, with normal bowel sounds. No distension or tympany. No guarding or rebound. No evidence of tenderness throughout. Back: No spinal tenderness. No costovertebral tenderness. Full range of motion. Skin: Warm, dry with normal turgor. Normal color with no rashes, no lesions, and no evidence of cellulitis. MS/ Extremity: Pulses equal, no cyanosis. Neurovascular intact. Full, normal range of motion. Neuro: Awake and alert, GCS 15, oriented to person, place, time, and situation. Cranial nerves II-XII grossly intact. Motor strength 5/5 in all extremities. Sensory grossly intact. Cerebellar exam normal. Normal gait. Vital Signs: 16:02 Pulse 124; Resp 20; Temp 98.2; Pulse Ox 97% on R/A; Weight 104.33 kg; Height 5 ft. 11 iw in. (180.34 cm); 16:02 Body Mass Index 32.08 (104.33 kg, 180.34 cm) iw MDM: 18:16 Patient medically screened. ajay 18:40 Data reviewed: vital signs, nurses notes, lab test result(s). Data interpreted: Pulse jr8 oximetry: on room air is 97 %. Interpretation: normal. Counseling: I had a detailed discussion with the patient and/or guardian regarding: the historical points, exam findings, and any diagnostic results supporting the discharge/admit diagnosis, lab results, the need for outpatient follow up, a family practitioner, to return to the emergency department if symptoms worsen or persist or if there are any questions or concerns that arise at home. ED course: Patient with no hypoxia or respiratory distress. No increase work of breathing. Recommended over the counter products for cold like symptoms at this time. To closely watch himself for worsening of symptoms. If he were to worsen to come back for further evaluation to ED. Patient good with this at this time . 05/14 16:02 Order name: COVID-19/FLU A+B (Document "Date of Onset" if Symptomatic); Complete Time: iw 18:22 05/14 16:05 Order name: CXR XRAY; Complete Time: 17:41 iw Administered Medications: No medications were administered Disposition: 05/15 04:40 Co-signature as Attending Physician, Jake Lazo MD I agree with the assessment and ajay plan of care. Disposition Summary: 05/14/21 18:21 Discharge Ordered Location: Home jr8 Problem: new jr8 Symptoms: have improved jr8 Condition: Stable jr8 Diagnosis - SARS-associated coronavirus as the cause of diseases classified elsewhere jr8 Followup: jr8 - With: Private Physician - When: 5 - 6 days - Reason: Recheck today's complaints, Continuance of care, Re-evaluation by your physician Discharge Instructions: - Discharge Summary Sheet jr8 - COVID-19 jr8 - 10 Things You Can Do to Manage Your COVID-19 Symptoms at Home - [facility] - COVID-19: Quarantine vs. Isolation - [facility] jr8 Forms: - Medication Reconciliation Form jr8 - Thank You Letter jr8 - Antibiotic Education jr8 - Prescription Opioid Use jr8 Prescriptions: - promethazine-DM 6.25-15 mg/5 mL Oral syrup - take 5 milliliter by ORAL route every 4-6 hours as needed, not to exceed 30 mL jr8 in 24 hours; 110 milliliter; Refills: 0, Product Selection Permitted Signatures: Dispatcher [employer] Jake Yepez MD MD cha Williams, Irene, HAROON RN Kerwin Pearson PA PA jr8
== END 2021-05-14 18:33 | disposition home or self-care (01) ==
LOC: ER 15:27
DX: U07.1 COVID-19 (principal)
CPT/HCPCS: 0240U; 71045; 99282